=== PATIENT | female | born 1990 | race Caucasian/White ===

== ENCOUNTER 2017-07-04 21:24 | Emergency (ER) | payer OTHER ==
[2017-07-04] MEDS ORDERED: LORazepam 2 MG/ML INJ IV STA ×2 (21:44→22:41)
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
[2017-07-04] MEDS ORDERED: ALPRAZolam 0.5 MG TAB PO STA (22:17)
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
[2017-07-04] MEDS ORDERED: HALOPERIDOL LACTATE 5 MG/ML 1 ML VIAL IM ONE (22:34)
[2017-07-04] MEDS ORDERED: diphenhydrAMINE 50 MG/ML 1 ML VIAL IM STA (22:34)
[2017-07-04] MEDS ORDERED: LORazepam 2 MG/ML INJ IM STA ×2 (22:34→23:12)
[2017-07-04 22:46] LABS: Anion Gap 16 mmol/L; Blood Urea Nitrogen 8 mg/dL (7-17); Calcium 9.7 mg/dL (8.4-10.2); Carbon Dioxide 19 mmol/L (22-30); Chloride 106 mmol/L (98-107); Glucose 98 mg/dL (74-99); Non-African American GFR(MDRD) >60 (>60 ml/min/1.73 sqM); Potassium 4.1 mmol/L (3.5-5.1); Sodium 141 mmol/L (137-145)
[2017-07-04 23:04] LABS: Alcohol 321 mg/dL
[2017-07-05 01:01] LABS: Anisocytosis Slight; Basophils # (A) 0.1 k/uL (0-0.2); Basophils % (A) 1 %; CH 22.3; CHCM 29.9; Eosinophils # (A) 0.1 k/uL (0-0.7); Eosinophils % (A) 1 %; HCT 37.7 % (34.0-46.0); HGB 11.4 gm/dL (11.4-16.0); Hypochromasia Marked; Luc # (Auto) 0.12; Luc % (Auto) 1; Lymphocytes # (A) 2.7 k/uL (1.0-4.8); Lymphocytes % (A) 21 %; MCH 22.6 pg (25.0-35.0); MCHC 30.2 g/dL (31.0-37.0); MCV 74.9 fL (80.0-100.0); Mean Platelet Volume 7.1; Microcytosis Moderate; Monocytes # (A) 0.5 k/uL (0-1.0); Monocytes % (A) 4 %; Neutrophils # (A) 9.3 k/uL (1.3-7.7); Neutrophils % (A) 72 %; RBC 5.03 m/uL (3.80-5.40); RDW 18.4 % (11.5-15.5); WBC 12.9 k/uL (3.8-10.6); WBC (Perox) 13.88
[2017-07-05 13:00] VITALS: BP 125/87; PULSE 78; RESP 18; TEMP 98.4
== END 2017-07-05 13:00 | disposition home or self-care (01) ==
LOC: EC 21:24
DX: F10.120 Alcohol abuse with intoxication, uncomplicated (principal); F43.20 Adjustment disorder, unspecified; S01.01XA Laceration without foreign body of scalp, initial encounter; F41.9 Anxiety disorder, unspecified; F32.9 Major depressive disorder, single episode, unspecified; F17.200 Nicotine dependence, unspecified, uncomplicated; Z78.1 Physical restraint status; Z79.899 Other long term (current) drug therapy; Y04.2XXA Assault by strike against or bumped into by another person, initial encounter
CPT/HCPCS: 99285; 12001; 96372 ×3; 36415; 80048; 80320; 72125; 70450; L0120; J2060; J1200; J1630; 85025

== ENCOUNTER 2017-09-19 02:09 | Emergency (ER) | payer OTHER ==
[2017-09-19 03:05] VITALS: RESP 16
[2017-09-19] MEDS ORDERED: LORazepam 2 MG/ML INJ IV STA (03:07)
[2017-09-19] MEDS ORDERED: SODIUM CHLORIDE 0.9% 1,000 ML IV STA (03:07)
--- NOTE | 2017-09-19 03:07 | ED ---
Alcohol HPI - General Stated Complaint: Chest Pain, Anxiety Time Seen by Provider: 09/19/17 02:24 Source: patient Limitations: no limitations - History of Present Illness Initial Comments: This patient is a 26-year-old woman who states that she is feeling extremely anxious tonight trying to stop drinking. She reports that she previously has had alcohol withdrawal. She states that she went back to drinking probably 3-4 days ago. She has been drinking one-to-two fifths. She also reports feeling nauseated. MD Complaint: alcohol intoxication -: hour(s) Recent Trauma: No Associated Symptoms: nausea, vomiting Treatments Prior to Arrival: none - Related Data Home Medications Medication Instructions Recorded Confirmed Escitalopram [Lexapro] 10 mg PO DAILY 07/05/17 07/05/17 Levothyroxine Sodium [Synthroid] 50 mcg PO DAILY 07/05/17 07/05/17 Previous Rx's Medication Instructions Recorded Omeprazole [PriLOSEC] 40 mg PO DAILY #7 capsule. 04/14/16 chlordiazePOXIDE HCl [Librium] 25 mg PO QID #20 capsule 09/19/17 Allergies Allergy/AdvReac Type Severity Reaction Status Date / Time No Known Allergies Allergy Verified 04/23/16 04:06 Review of Systems ROS Statement: Those systems with pertinent positive or pertinent negative responses have been documented in the HPI. ROS Other: All systems not noted in ROS Statement are negative. Constitutional: Denies: fever, chills Respiratory: Denies: cough, dyspnea Cardiovascular: Reports: palpitations. Denies: chest pain, syncope Gastrointestinal: Reports: nausea. Denies: abdominal pain, vomiting, diarrhea Genitourinary: Denies: dysuria Musculoskeletal: Denies: back pain Neurological: Denies: headache, weakness, numbness Psychiatric: Reports: anxiety. Denies: homicidal thoughts, suicidal thoughts Past Medical History Past Medical History: GERD/Reflux Additional Past Medical History / Comment(s): depression History of Any Multi-Drug Resistant Organisms: None Reported Past Surgical History: No Surgical Hx Reported Past Psychological History: Anxiety, Depression, Panic Disorder Smoking Status: Current every day smoker Past Alcohol Use History: Occasional Past Drug Use History: None Reported General Exam General appearance: alert, appears intoxicated Head exam: Present: atraumatic, normocephalic Eye exam: Present: normal appearance, nystagmus. Absent: scleral icterus, conjunctival injection ENT exam: Present: mucous membranes dry Neck exam: Present: normal inspection Respiratory exam: Present: normal lung sounds bilaterally. Absent: respiratory distress, wheezes, rales, rhonchi, stridor Cardiovascular Exam: Present: normal rhythm, tachycardia, normal heart sounds. Absent: systolic murmur, diastolic murmur, rubs, gallop GI/Abdominal exam: Present: soft. Absent: distended, tenderness, guarding, rebound, mass Extremities exam: Present: normal inspection, normal capillary refill. Absent: pedal edema, calf tenderness Back exam: Absent: CVA tenderness (R), CVA tenderness (L) Neurological exam: Present: alert Skin exam: Present: warm, dry, intact, normal color. Absent: rash Course Vital Signs 09/19/17 09/19/17 02:09 04:06 Temperature 97.8 F Pulse Rate 125 H 95 Respiratory 16 16 Rate Blood Pressure 159/89 144/83 O2 Sat by Pulse 96 95 Oximetry Medical Decision Making - Lab Data Result diagrams: 09/19/17 03:21 09/19/17 03:21 Lab Results 09/19/17 09/19/17 Range/Units 03:21 03:21 WBC 8.4 (3.8-10.6) k/uL RBC 5.06 (3.80-5.40) m/uL Hgb 11.6 (11.4-16.0) gm/dL Hct 38.8 (34.0-46.0) % MCV 76.7 L (80.0-100.0) fL MCH 23.0 L (25.0-35.0) pg MCHC 30.0 L (31.0-37.0) g/dL RDW 16.7 H (11.5-15.5) % Plt Count 279 (150-450) k/uL Neutrophils % 69 % Lymphocytes % 25 % Monocytes % 4 % Eosinophils % 0 % Basophils % 1 % Neutrophils # 5.8 (1.3-7.7) k/uL Lymphocytes # 2.1 (1.0-4.8) k/uL Monocytes # 0.3 (0-1.0) k/uL Eosinophils # 0.0 (0-0.7) k/uL Basophils # 0.1 (0-0.2) k/uL Hypochromasia Moderate Anisocytosis Slight Microcytosis Slight Sodium 140 (137-145) mmol/L Potassium 4.5 (3.5-5.1) mmol/L Chloride 103 (98-107) mmol/L Carbon Dioxide 22 (22-30) mmol/L Anion Gap 15 mmol/L BUN 7 (7-17) mg/dL Creatinine 0.63 (0.52-1.04) mg/dL Est GFR (MDRD) Af Amer >60 (>60 ml/min/1.73 sqM) Est GFR (MDRD) Non-Af >60 (>60 ml/min/1.73 sqM) Glucose 161 H (74-99) mg/dL Calcium 8.6 (8.4-10.2) mg/dL Total Bilirubin 0.5 (0.2-1.3) mg/dL AST 124 H (14-36) U/L ALT 82 H (9-52) U/L Alkaline Phosphatase 122 (38-126) U/L Total Protein 7.4 (6.3-8.2) g/dL Albumin 4.0 (3.5-5.0) g/dL - EKG Data -: EKG Interpreted by [facility] EKG shows normal: sinus rhythm, axis (Normal), intervals (Normal), QRS complexes (Normal), ST-T waves (Normal) Rate: tachycardia (Rate approximately 116 bpm) Disposition Clinical Impression: Alcohol intoxication, Alcohol withdrawal Disposition: HOME SELF-CARE Condition: Fair Instructions: Alcohol Intoxication (ED) Prescriptions: chlordiazePOXIDE HCl [Librium] 25 mg PO QID #20 capsule Referrals: Hafsa Nevarez MD [Primary Care Provider] - 1-2 days
[2017-09-19 03:32] LABS: Anisocytosis Slight; Basophils # (A) 0.1 k/uL (0-0.2); Basophils % (A) 1 %; Eosinophils % (A) 0 %; HCT 38.8 % (34.0-46.0); HGB 11.6 gm/dL (11.4-16.0); Hypochromasia Moderate; Lymphocytes # (A) 2.1 k/uL (1.0-4.8); Lymphocytes % (A) 25 %; MCV 76.7 fL (80.0-100.0); Mean Platelet Volume 7.4; Microcytosis Slight; Monocytes # (A) 0.3 k/uL (0-1.0); Monocytes % (A) 4 %; Neutrophils # (A) 5.8 k/uL (1.3-7.7); Neutrophils % (A) 69 %; Platelet Count 279 k/uL (150-450); RBC 5.06 m/uL (3.80-5.40); RDW 16.7 % (11.5-15.5); WBC 8.4 k/uL (3.8-10.6)
[2017-09-19 03:43] LABS: ALT 82 U/L (9-52); AST 124 U/L (14-36); Alkaline Phosphatase 122 U/L (38-126); Anion Gap 15 mmol/L; Blood Urea Nitrogen 7 mg/dL (7-17); Calcium 8.6 mg/dL (8.4-10.2); Carbon Dioxide 22 mmol/L (22-30); Chloride 103 mmol/L (98-107); Glucose 161 mg/dL (74-99); Potassium 4.5 mmol/L (3.5-5.1); Sodium 140 mmol/L (137-145); Total Bilirubin 0.5 mg/dL (0.2-1.3); Total Protein 7.4 g/dL (6.3-8.2)
[2017-09-19 04:07] VITALS: BP 144/83
[2017-09-19 04:54] VITALS: PULSE 120; TEMP 98.7
== END 2017-09-19 04:54 | disposition home or self-care (01) ==
LOC: EC 02:09
DX: F10.239 Alcohol dependence with withdrawal, unspecified (principal); F10.229 Alcohol dependence with intoxication, unspecified; F32.9 Major depressive disorder, single episode, unspecified; F41.9 Anxiety disorder, unspecified; F17.200 Nicotine dependence, unspecified, uncomplicated; Z79.899 Other long term (current) drug therapy
CPT/HCPCS: 99285; 96374; 96361; 36415; 80053; 85025; J2060; 93005

== ENCOUNTER 2020-05-03 09:15 | Emergency (ER) | payer OTHER ==
[2020-05-03 09:23] VITALS: RESP 18
[2020-05-03] MEDS ORDERED: PANTOPRAZOLE 40 MG/10 ML VIAL IVP STA (09:41)
[2020-05-03] MEDS ORDERED: SODIUM CHLORIDE 0.9% 1,000 ML IV STA ×2 (09:41)
--- NOTE | 2020-05-03 09:55 | ED ---
Abdominal Pain HPI - General Chief Complaint: Abdominal Pain Stated Complaint: abd pain Time Seen by Provider: 05/03/20 09:28 Source: patient, RN notes reviewed, old records reviewed Mode of arrival: ambulatory Limitations: no limitations - History of Present Illness Initial Comments: Patient is a 29-year-old female presents the ER today for upper abdominal pain. She reports it seems to be across both sides of her ribs underneath. Does complain of nausea. She states that she has no fevers or chills. She states she believes is related to previous H. pylori infection and gastric ulcers. Ports that intermittent pain for the past few days. She does take Prilosec daily. - Related Data Home Medications Medication Instructions Recorded Confirmed Escitalopram [Lexapro] 10 mg PO DAILY 07/05/17 07/05/17 Levothyroxine Sodium [Synthroid] 50 mcg PO DAILY 07/05/17 07/05/17 Previous Rx's Medication Instructions Recorded Omeprazole [PriLOSEC] 40 mg PO DAILY #7 capsule. 04/14/16 chlordiazePOXIDE HCl [Librium] 25 mg PO QID #20 capsule 09/19/17 Allergies Allergy/AdvReac Type Severity Reaction Status Date / Time No Known Allergies Allergy Verified 05/03/20 09:23 Review of Systems ROS Statement: Those systems with pertinent positive or pertinent negative responses have been documented in the HPI. ROS Other: All systems not noted in ROS Statement are negative. Past Medical History Past Medical History: GERD/Reflux Additional Past Medical History / Comment(s): depression History of Any Multi-Drug Resistant Organisms: None Reported Past Surgical History: No Surgical Hx Reported Additional Past Surgical History / Comment(s): oral surgery Past Psychological History: Anxiety, Depression, Panic Disorder Smoking Status: Current every day smoker Past Alcohol Use History: None Reported Past Drug Use History: None Reported General Exam - General Exam Comments Initial Comments: Alert and oriented 29-year-old female. No distress. Limitations: no limitations General appearance: alert, in no apparent distress Head exam: Present: atraumatic, normocephalic, normal inspection Eye exam: Present: normal appearance, PERRL, EOMI. Absent: scleral icterus, conjunctival injection, periorbital swelling ENT exam: Present: normal exam, mucous membranes moist Neck exam: Present: normal inspection. Absent: tenderness, meningismus, lymphadenopathy Respiratory exam: Absent: normal lung sounds bilaterally (Right upper quadrant tenderness), respiratory distress, wheezes, rales, rhonchi, stridor Cardiovascular Exam: Present: regular rate, normal rhythm, normal heart sounds. Absent: systolic murmur, diastolic murmur, rubs, gallop, clicks GI/Abdominal exam: Present: soft, normal bowel sounds. Absent: distended, tenderness, guarding, rebound, rigid Extremities exam: Present: normal inspection, full ROM, normal capillary refill. Absent: tenderness, pedal edema, joint swelling, calf tenderness Back exam: Present: normal inspection Neurological exam: Present: alert, oriented X3, CN II-XII intact Psychiatric exam: Present: normal affect, normal mood Skin exam: Present: warm, dry, intact, normal color. Absent: rash Course Vital Signs 05/03/20 09:18 Temperature 98.7 F Pulse Rate 103 H Respiratory 18 Rate Blood Pressure 143/90 O2 Sat by Pulse 100 Oximetry Medical Decision Making - Medical Decision Making 29-year-old female with history of prior alcoholism under control shots presents today for upper abdominal pain. Past few days. Patient initially was concerning for gastritis or ulcers. Patient was given IV fluids labwork obtained. Patient does have elevated lipase. She does have better after receiving Toradol and Protonix. Patient's case is discussed Dr. Sarah who did evaluate the Patient emergency department. She had ultrasound finding which suggest a clinical no cholelithiasis. Patient is clinically well and was evaluated by Dr. Hong can be discharged home with outpatient follow-up. - Lab Data Result diagrams: 05/03/20 09:47 05/03/20 09:47 Lab Results 05/03/20 05/03/20 05/03/20 Range/Units 09:47 09:47 09:47 WBC 9.9 (3.8-10.6) k/uL RBC 4.98 (3.80-5.40) m/uL Hgb 13.4 (11.4-16.0) gm/dL Hct 41.7 (34.0-46.0) % MCV 83.6 (80.0-100.0) fL MCH 26.9 (25.0-35.0) pg MCHC 32.2 (31.0-37.0) g/dL RDW 13.4 (11.5-15.5) % Plt Count 359 (150-450) k/uL Neutrophils % 64 % Lymphocytes % 28 % Monocytes % 5 % Eosinophils % 2 % Basophils % 1 % Neutrophils # 6.3 (1.3-7.7) k/uL Lymphocytes # 2.8 (1.0-4.8) k/uL Monocytes # 0.4 (0-1.0) k/uL Eosinophils # 0.2 (0-0.7) k/uL Basophils # 0.1 (0-0.2) k/uL Sodium 139 (137-145) mmol/L Potassium 4.5 (3.5-5.1) mmol/L Chloride 108 H (98-107) mmol/L Carbon Dioxide 23 (22-30) mmol/L Anion Gap 8 mmol/L BUN 10 (7-17) mg/dL Creatinine 0.77 (0.52-1.04) mg/dL Est GFR (CKD-EPI)AfAm >90 (>60 ml/min/1.73 sqM) Est GFR (CKD-EPI)NonAf >90 (>60 ml/min/1.73 sqM) Glucose 126 H (74-99) mg/dL Calcium 10.0 (8.4-10.2) mg/dL Total Bilirubin 0.3 (0.2-1.3) mg/dL AST 21 (14-36) U/L ALT 18 (4-34) U/L Alkaline Phosphatase 77 (38-126) U/L Total Protein 7.1 (6.3-8.2) g/dL Albumin 4.4 (3.5-5.0) g/dL Amylase 78 (30-110) U/L Lipase 444 H (23-300) U/L Urine Color Yellow Urine Appearance Clear (Clear) Urine pH 6.5 (5.0-8.0) Ur Specific [place] 1.020 (1.001-1.035) Urine Protein Negative (Negative) Urine Glucose (UA) Negative (Negative) Urine Ketones Negative (Negative) Urine Blood Trace H (Negative) Urine Nitrite Negative (Negative) Urine Bilirubin Negative (Negative) Urine Urobilinogen <2.0 (<2.0) mg/dL Ur Leukocyte Esterase Negative (Negative) Urine RBC 1 (0-5) /hpf Urine WBC <1 (0-5) /hpf Ur Squamous Epith Cells 3 (0-4) /hpf Urine Mucus Rare H (None) /hpf - Radiology Data Radiology results: report reviewed Findings just pericellular disease. Atrophic pancreas. Possible dilated pancreatic that may be related to chronic pancreatitis. Patient dilated common bile ducts and findings just choledocholithiasis. Consider gastric neurology consult. Disposition Clinical Impression: Chronic pancreatitis, Upper abdominal pain, Biliary colic Disposition: HOME SELF-CARE Condition: Good Instructions (If sedation given, give patient instructions): Abdominal Pain (ED), Low Fat Diet (ED) Additional Instructions: Patient advised to follow-up with primary care physician and surgeon. Return to the ED if any alarming signs or symptoms occur. Is patient prescribed a controlled substance at d/c from ED?: No Referrals: [facility] [Primary Care Provider] - 1-2 days Sabra Draper MD [STAFF PHYSICIAN] - 1-2 days Time of Disposition: 12:12
[2020-05-03 10:14] LABS: Basophils # (A) 0.1 k/uL (0-0.2); Basophils % (A) 1 %; Eosinophils # (A) 0.2 k/uL (0-0.7); Eosinophils % (A) 2 %; HCT 41.7 % (34.0-46.0); HGB 13.4 gm/dL (11.4-16.0); Lymphocytes # (A) 2.8 k/uL (1.0-4.8); Lymphocytes % (A) 28 %; MCH 26.9 pg (25.0-35.0); MCHC 32.2 g/dL (31.0-37.0); MCV 83.6 fL (80.0-100.0); Mean Platelet Volume 7.5; Monocytes # (A) 0.4 k/uL (0-1.0); Monocytes % (A) 5 %; Neutrophils # (A) 6.3 k/uL (1.3-7.7); Neutrophils % (A) 64 %; Platelet Count 359 k/uL (150-450); RBC 4.98 m/uL (3.80-5.40); RDW 13.4 % (11.5-15.5); WBC 9.9 k/uL (3.8-10.6)
[2020-05-03 10:21] LABS: ALT 18 U/L (4-34); AST 21 U/L (14-36); African American GFR (CKD) >90 (>60 ml/min/1.73 sqM); Albumin 4.4 g/dL (3.5-5.0); Alkaline Phosphatase 77 U/L (38-126); Amylase 78 U/L (30-110); Anion Gap 8 mmol/L; Blood Urea Nitrogen 10 mg/dL (7-17); Carbon Dioxide 23 mmol/L (22-30); Chloride 108 mmol/L (98-107); Glucose 126 mg/dL (74-99); Non-African American GFR(CKD) >90 (>60 ml/min/1.73 sqM); Potassium 4.5 mmol/L (3.5-5.1); Sodium 139 mmol/L (137-145); Total Bilirubin 0.3 mg/dL (0.2-1.3); Total Protein 7.1 g/dL (6.3-8.2)
[2020-05-03] MEDS ORDERED: KETOROLAC 15 MG/ML 1 ML VIAL IVP STA (10:30)
[2020-05-03 10:36] LABS: Appearance,Urine Clear (Clear); Bilirubin,Urine Negative (Negative); Blood,Urine Trace (Negative); Color,Urine Yellow; Glucose,Urine (UA) Negative (Negative); Ketones,Urine Negative (Negative); Leukocyte Esterase,Urine Negative (Negative); Mucus,Urine Rare /hpf; Nitrite,Urine Negative (Negative); PH, Urine 6.5 (5.0-8.0); Protein,Urine Negative (Negative); RBC,Urine 1 /hpf (0-5); Squamous Epithelial Cell,Urine 3 /hpf (0-4); Urobilinogen,Urine <2.0 mg/dL (<2.0); WBC,Urine <1 /hpf (0-5)
--- NOTE | 2020-05-03 11:35 | US ---
EXAMINATION TYPE: US gallbladder DATE OF EXAM: 05/03/2020 COMPARISON: NONE CLINICAL HISTORY: elevated lipase, pain. abnormal labs. Pain. EXAM MEASUREMENTS: Liver Length: 16.2 cm Gallbladder Wall: 0.2 cm CBD: 0.9 cm Right Kidney: 11.2 x 4.4 x 4.2 cm Pancreas: Head and tail not well visualized. Body appears heterogenous and small, possible dilated pancreatic duct. Liver: Appears coarse and slightly heterogenous Gallbladder: wnl Evidence for sonographic Calles's sign: neg CBD: Possible nonvascular nonshadowing circular lesion visualized in CBD = 1.1 x 0.8 x 0.8 cm Right Kidney: No hydronephrosis or masses seen IMPRESSION: Findings suggest hepatocellular disease. Atrophic pancreas, possible dilated pancreatic d uct may be related to chronic pancreatitis. There is dilated common bile duct, findings suggest danielle docholithiasis, consider gastroenterology consult.
--- NOTE | 2020-05-03 12:18 | P.GSCN ---
History of Present Illness Consult date: 05/03/20 History of present illness: Patient presented to the ER after having recurrent episodes of progressive abdominal pain. She reports at presentation to the ER, her pain was severe including at the right upper quadrant. She presently is comfortable. Her initial abdominal pain has subsided. Her last meal was homemade bulgarian toast with butter, eggs, cinnamon and bread. "I usually eat fatty foods." Labs demonstrated no elevated of her liver enzymes, but with mildy elevated lipase. She has history of drinking. Additionally, her ultrasound was personally reviewed without thickened gallbladder wall. Radiology report had questionable choledocholithiasis, however clinically total bilirubin and liver enzymes are normal and she no longer has any significant abdominal pain. ABDOMEN: No peritonitis. Non-tender. Non-distended. LABS: Reviewed STUDIES: US reviewed. PLAN: 1. Clinically, he acute abdominal pain has resolved. Clinical history is consistent with symptomatic gallstones. 2. Low fat diet and education reinforced to avoid fatty foods. 3. Since abdominal pain is better with dietary education performed, patient may be discharged from a surgical standpoint with follow-up in the office. 4. All questions were addressed. Patient was happy with care plan. Past Medical History Past Medical History: GERD/Reflux Additional Past Medical History / Comment(s): depression History of Any Multi-Drug Resistant Organisms: None Reported Past Surgical History: No Surgical Hx Reported Additional Past Surgical History / Comment(s): oral surgery Past Psychological History: Anxiety, Depression, Panic Disorder Smoking Status: Current every day smoker Past Alcohol Use History: None Reported Past Drug Use History: None Reported Medications and Allergies Home Medications Medication Instructions Recorded Confirmed Type Omeprazole [PriLOSEC] 40 mg PO DAILY #7 capsule. 04/14/16 07/05/17 Rx Escitalopram [Lexapro] 10 mg PO DAILY 07/05/17 07/05/17 History Levothyroxine Sodium [Synthroid] 50 mcg PO DAILY 07/05/17 07/05/17 History chlordiazePOXIDE HCl [Librium] 25 mg PO QID #20 capsule 09/19/17 Rx Allergies Allergy/AdvReac Type Severity Reaction Status Date / Time No Known Allergies Allergy Verified 05/03/20 09:23 Surgical - Exam Vital Signs Temp Pulse Resp BP Pulse Ox 98.7 F 103 H 18 143/90 100 05/03/20 09:18 05/03/20 09:18 05/03/20 09:18 05/03/20 09:18 05/03/20 09:18 Results - Labs 05/03/20 09:47 05/03/20 09:47 Abnormal Lab Results - Last 24 Hours (Table) 05/03/20 05/03/20 Range/Units 09:47 09:47 Chloride 108 H (98-107) mmol/L Glucose 126 H (74-99) mg/dL Lipase 444 H (23-300) U/L Urine Blood Trace H (Negative) Urine Mucus Rare H (None) /hpf Diabetes panel 05/03/20 Range/Units 09:47 Sodium 139 (137-145) mmol/L Potassium 4.5 (3.5-5.1) mmol/L Chloride 108 H (98-107) mmol/L Carbon Dioxide 23 (22-30) mmol/L BUN 10 (7-17) mg/dL Creatinine 0.77 (0.52-1.04) mg/dL Glucose 126 H (74-99) mg/dL Calcium 10.0 (8.4-10.2) mg/dL AST 21 (14-36) U/L ALT 18 (4-34) U/L Alkaline Phosphatase 77 (38-126) U/L Total Protein 7.1 (6.3-8.2) g/dL Albumin 4.4 (3.5-5.0) g/dL Calcium panel 05/03/20 Range/Units 09:47 Calcium 10.0 (8.4-10.2) mg/dL Albumin 4.4 (3.5-5.0) g/dL Pituitary panel 05/03/20 Range/Units 09:47 Sodium 139 (137-145) mmol/L Potassium 4.5 (3.5-5.1) mmol/L Chloride 108 H (98-107) mmol/L Carbon Dioxide 23 (22-30) mmol/L BUN 10 (7-17) mg/dL Creatinine 0.77 (0.52-1.04) mg/dL Glucose 126 H (74-99) mg/dL Calcium 10.0 (8.4-10.2) mg/dL Adrenal panel 05/03/20 Range/Units 09:47 Sodium 139 (137-145) mmol/L Potassium 4.5 (3.5-5.1) mmol/L Chloride 108 H (98-107) mmol/L Carbon Dioxide 23 (22-30) mmol/L BUN 10 (7-17) mg/dL Creatinine 0.77 (0.52-1.04) mg/dL Glucose 126 H (74-99) mg/dL Calcium 10.0 (8.4-10.2) mg/dL Total Bilirubin 0.3 (0.2-1.3) mg/dL AST 21 (14-36) U/L ALT 18 (4-34) U/L Alkaline Phosphatase 77 (38-126) U/L Total Protein 7.1 (6.3-8.2) g/dL Albumin 4.4 (3.5-5.0) g/dL
[2020-05-03 12:24] VITALS: BP 140/83; PULSE 97; TEMP 98.3
== END 2020-05-03 12:24 | disposition home or self-care (01) ==
LOC: EC 09:15
DX: K80.50 Calculus of bile duct without cholangitis or cholecystitis without obstruction (principal); K86.1 Other chronic pancreatitis; F41.9 Anxiety disorder, unspecified; F32.9 Major depressive disorder, single episode, unspecified; F17.200 Nicotine dependence, unspecified, uncomplicated; Z79.899 Other long term (current) drug therapy
CPT/HCPCS: 36415; 80053; 82150; 83690; 85025; 81001; 76705; 99284; 96374; 96375; 96361 ×2; J1885; C9113

== ENCOUNTER → 2020-08-24 | Outpatient (CLI) | payer OTHER ==
--- NOTE | 2020-08-25 03:58 | MR ---
EXAMINATION TYPE: MR MRCP DATE OF EXAM: 08/24/2020 COMPARISON: HISTORY: Chronic pancreatitis Multiplanar multiecho imaging of the abdomen was performed without contrast. There are MRCP images. Liver and spleen have normal size and contour. The bile ducts are not dilated. Gallbladder appears no rmal. There is mild hiatal hernia. Pancreas has normal size. There is no evidence of pancreatic mass. There is a wavy appearance of the pancreatic duct. No pancreatic mass seen. Pancreatic duct is not o bviously dilated. Pancreatic duct measures up to 4 mm. There is no adrenal mass. The kidneys have normal size. There is no hydronephrosis. There is no evide nce of a renal mass. There is no evidence of retroperitoneal adenopathy. There is no ascites. IMPRESSION: There is slight wavy appearance of the pancreatic duct that could relate to some chronic pancreatitis . There is no evidence of acute pancreatitis. No dilated ducts. Biliary tree and gallbladder appear n ormal.
== END | disposition home or self-care (01) ==
LOC: RADMRIMAIN 21:01
PROVIDERS: ATTEND Physician Assistant
DX: R93.5 Abnormal findings on diagnostic imaging of other abdominal regions, including retroperitoneum (principal)
CPT/HCPCS: 74181

== ENCOUNTER → 2021-02-12 | Outpatient (CLI) | payer OTHER ==
--- NOTE | 2021-02-12 08:48 | US ---
EXAMINATION TYPE: US abdomen complete DATE OF EXAM: 02/12/2021 COMPARISON: NONE CLINICAL HISTORY: R10.13 epigastric pain. Epigastric pain EXAM MEASUREMENTS: Liver Length: 16.9 cm Gallbladder Wall: 0.2 cm CBD: 0.9 cm Spleen: 9.5 cm Right Kidney: 12.5 x 3.9 x 4.3 cm Left Kidney: 11.4 x 5.6 x 4.6 cm Pancreas: Poorly visualized. Heterogeneous pancreatic parenchyma. Dilated duct = 0.5cm Liver: Mild diffuse fatty infiltration of the liver. Gallbladder: no evidence of stones Evidence for sonographic Calles's sign: no CBD: dilated Spleen: wnl Right Kidney: no evidence of hydronephrosis Left Kidney: no evidence of hydronephrosis Upper IVC: wnl Abd Aorta: wnl The right lobe of the liver measures 16.9 cm. Mild diffuse fatty infiltration of the liver. No discre te hepatic mass or intrahepatic biliary dilatation. No gallstones, sludge, pericholecystic fluid. Gal lbladder wall is within normal limits. Common duct is dilated measuring up to 1 cm. The pancreatic du ct is also dilated measuring up to 5 mm. An obstructing calculus or lesion is not excluded. MRCP or E STEAM TABLE ASSOCIATE is recommended for further evaluation. No renal calculi or hydronephrosis. The spleen is normal i n length. IMPRESSION: 1. Mild diffuse fatty infiltration of liver. 2. No gallstones, sludge, or pericholecystic fluid. Gallbladder wall thickness is within normal limit s. 3. The common duct and pancreatic duct are dilated. Further evaluation with MRCP or ERCP is recommend ed. An obstructing calculus or underlying lesion/ mass is not excluded.
== END | disposition home or self-care (01) ==
LOC: RADUSWWP 06:55
PROVIDERS: ATTEND Internal Medicine Gastroenterology
DX: K76.0 Fatty (change of) liver, not elsewhere classified (principal); K83.8 Other specified diseases of biliary tract
CPT/HCPCS: 76700

== ENCOUNTER 2021-02-20 09:37 | Inpatient (IN) | payer OTHER ==
[2021-02-20] MEDS ORDERED: SODIUM CHLORIDE 0.9% 1,000 ML IV STA (09:48)
[2021-02-20] MEDS ORDERED: SODIUM CHLORIDE 0.9% 500 ML 500 ML IV STA (09:48)
--- NOTE | 2021-02-20 10:02 | ED ---
General Adult HPI - General Chief complaint: Abdominal Pain Stated complaint: abd pain Time Seen by Provider: 02/20/21 09:40 Source: patient, RN notes reviewed, old records reviewed Mode of arrival: EMS Limitations: no limitations - History of Present Illness Initial comments: This is a 30-year-old female who presents to the emergency department via EMS and she states she's had abdominal pain for last 2 days she has a history of pancreatitis and drinking but she hasn't drank in a few years. Patient states the pain feels exactly like her pancreatitis pain in the past. Patient states the pain started 2 days ago and got progressively worse and she continues to vomit starting yesterday to today. Patient denies any diarrhea per patient denies any dysuria hematuria urinary frequency. Patient denies any chest pain difficulty breathing first breath per patient denies any fever chills or cough per patient denies headache patient denies numbness weakness per patient denies any lightheadedness or dizziness. - Related Data Home Medications Medication Instructions Recorded Confirmed Escitalopram [Lexapro] 10 mg PO DAILY 07/05/17 07/05/17 Levothyroxine Sodium [Synthroid] 50 mcg PO DAILY 07/05/17 07/05/17 Previous Rx's Medication Instructions Recorded Omeprazole [PriLOSEC] 40 mg PO DAILY #7 capsule. 04/14/16 chlordiazePOXIDE HCl [Librium] 25 mg PO QID #20 capsule 09/19/17 Allergies Allergy/AdvReac Type Severity Reaction Status Date / Time No Known Allergies Allergy Verified 02/20/21 09:45 Review of Systems ROS Statement: Those systems with pertinent positive or pertinent negative responses have been documented in the HPI. ROS Other: All systems not noted in ROS Statement are negative. Past Medical History Past Medical History: GERD/Reflux Additional Past Medical History / Comment(s): depression, pancreatitis History of Any Multi-Drug Resistant Organisms: None Reported Past Surgical History: No Surgical Hx Reported Additional Past Surgical History / Comment(s): oral surgery Past Psychological History: Anxiety, Depression, Panic Disorder Smoking Status: Current every day smoker Past Alcohol Use History: Abuse Past Drug Use History: None Reported General Exam - General Exam Comments Initial Comments: GENERAL: Patient is well-developed and well-nourished. Patient is nontoxic and well- hydrated and is in mild distress. ENT: Neck is soft and supple. No significant lymphadenopathy is noted. Oropharynx is clear. Moist mucous membranes. Neck has full range of motion without eliciting any pain. EYES: The sclera were anicteric and conjunctiva were pink and moist. Extraocular movements were intact and pupils were equal round and reactive to light. Eyelids were unremarkable. PULMONARY: Unlabored respirations. Good breath sounds bilaterally. No audible rales rhonchi or wheezing was noted. CARDIOVASCULAR: There is a regular rate and rhythm without any murmurs gallops or rubs. ABDOMEN: Epigastric abdominal pain SKIN: Skin is clear with no lesions or rashes and otherwise unremarkable. NEUROLOGIC: Patient is alert and oriented x3. Cranial nerves II through XII are grossly intact. Motor and sensory are also intact. Normal speech, volume and content. Symmetrical smile. MUSCULOSKELETAL: Normal extremities with adequate strength and full range of motion. LYMPHATICS: No significant lymphadenopathy is noted PSYCHIATRIC: Normal psychiatric evaluation. Limitations: no limitations Course Vital Signs 02/20/21 02/20/21 09:42 11:51 Temperature 98.2 F 98.1 F Pulse Rate 76 53 L Respiratory 16 16 Rate Blood Pressure 145/88 125/70 O2 Sat by Pulse 97 97 Oximetry Medical Decision Making - Medical Decision Making EKG shows normal sinus rhythm at 60 bpm HI interval is on a 44 QRS is 82 QT interval 434 QTC is 434 per patient's EKG shows no ST segment elevation or d epression. Patient's ultrasound showed dilated intrahepatic ducts as well as, bile duct as well as the pancreatic duct. No signs of cholecystitis were noted. Patient continued to have epigastric abdominal pain. Patient's amylase was elevated. - Lab Data Result diagrams: 02/20/21 09:52 02/20/21 09:52 Lab Results 02/20/21 02/20/21 02/20/21 Range/Units 09:52 09:52 09:52 WBC 17.0 H (3.8-10.6) k/uL RBC 4.75 (3.80-5.40) m/uL Hgb 14.1 (11.4-16.0) gm/dL Hct 40.4 (34.0-46.0) % MCV 85.1 (80.0-100.0) fL MCH 29.7 (25.0-35.0) pg MCHC 34.9 (31.0-37.0) g/dL RDW 13.2 (11.5-15.5) % Plt Count 402 (150-450) k/uL MPV 7.8 Neutrophils % 87 % Lymphocytes % 9 % Monocytes % 3 % Eosinophils % 1 % Basophils % 0 % Neutrophils # 14.7 H (1.3-7.7) k/uL Lymphocytes # 1.6 (1.0-4.8) k/uL Monocytes # 0.4 (0-1.0) k/uL Eosinophils # 0.2 (0-0.7) k/uL Basophils # 0.0 (0-0.2) k/uL Sodium 134 L (137-145) mmol/L Potassium 4.4 (3.5-5.1) mmol/L Chloride 103 (98-107) mmol/L Carbon Dioxide 15 L (22-30) mmol/L Anion Gap 16 mmol/L BUN 18 H (7-17) mg/dL Creatinine 0.64 (0.52-1.04) mg/dL Est GFR (CKD-EPI)AfAm >90 (>60 ml/min/1.73 sqM) Est GFR (CKD-EPI)NonAf >90 (>60 ml/min/1.73 sqM) Glucose 165 H (74-99) mg/dL Plasma Lactic Acid Andrei 1.3 (0.7-2.0) mmol/L Calcium 10.9 H (8.4-10.2) mg/dL Total Bilirubin 2.5 H (0.2-1.3) mg/dL AST 123 H (14-36) U/L ALT 274 H (4-34) U/L Alkaline Phosphatase 189 H (38-126) U/L Total Protein 7.9 (6.3-8.2) g/dL Albumin 5.2 H (3.5-5.0) g/dL Amylase 177 H (30-110) U/L Lipase 750 H (23-300) U/L Disposition Clinical Impression: Biliary colic, Pancreatitis due to biliary obstruction Disposition: ADMITTED IP TO THIS [facility] Referrals: None,Stated [REFERRING] - 1-2 days Time of Disposition: 12:18
[2021-02-20 10:06] LABS: Basophils % (A) 0 %; Eosinophils # (A) 0.2 k/uL (0-0.7); Eosinophils % (A) 1 %; HCT 40.4 % (34.0-46.0); HGB 14.1 gm/dL (11.4-16.0); Lymphocytes # (A) 1.6 k/uL (1.0-4.8); Lymphocytes % (A) 9 %; MCH 29.7 pg (25.0-35.0); MCHC 34.9 g/dL (31.0-37.0); MCV 85.1 fL (80.0-100.0); Mean Platelet Volume 7.8; Monocytes # (A) 0.4 k/uL (0-1.0); Monocytes % (A) 3 %; Neutrophils # (A) 14.7 k/uL (1.3-7.7); Neutrophils % (A) 87 %; Platelet Count 402 k/uL (150-450); RBC 4.75 m/uL (3.80-5.40); RDW 13.2 % (11.5-15.5)
[2021-02-20 10:17] LABS: ALT 274 U/L (4-34); AST 123 U/L (14-36); African American GFR (CKD) >90 (>60 ml/min/1.73 sqM); Albumin 5.2 g/dL (3.5-5.0); Alkaline Phosphatase 189 U/L (38-126); Amylase 177 U/L (30-110); Anion Gap 16 mmol/L; Blood Urea Nitrogen 18 mg/dL (7-17); Calcium 10.9 mg/dL (8.4-10.2); Carbon Dioxide 15 mmol/L (22-30); Chloride 103 mmol/L (98-107); Glucose 165 mg/dL (74-99); Lipase 750 U/L (23-300); Non-African American GFR(CKD) >90 (>60 ml/min/1.73 sqM); Potassium 4.4 mmol/L (3.5-5.1); Sodium 134 mmol/L (137-145); Total Bilirubin 2.5 mg/dL (0.2-1.3); Total Protein 7.9 g/dL (6.3-8.2)
[2021-02-20] MEDS ORDERED: PIPERACILLIN-TAZOBACTAM 3.375 GM in SODIUM CHLORIDE 0.9% 100 ML IVPB STA (11:01)
--- NOTE | 2021-02-20 11:06 | US ---
EXAMINATION TYPE: US gallbladder DATE OF EXAM: 02/20/2021 COMPARISON: NONE CLINICAL HISTORY: Right upper quadrant abdominal pain elevated liver. Pain EXAM MEASUREMENTS: Liver Length: 17.2 cm Gallbladder Wall: 0.3 cm CBD: 1.2 cm Right Kidney: 12.4 x 4.3 x 3.6 cm Pancreas: Tail obscured by overlying bowel gas. Main pancreatic duct dilated up to 6 mm. Liver: No evidence of hepatic mass or dilated intrahepatic ducts. Gallbladder: No shadowing calculi seen within the gallbladder lumen. Evidence for sonographic Calles's sign: No CBD: Dilated. Internal echoes seen within the extrahepatic proximal common bile duct. Right Kidney: wnl IMPRESSION: 1. No sonographic evidence of cholelithiasis or acute cholecystitis. 2. Dilated extrahepatic common bile duct and main pancreatic duct. 3. Internal echoes seen within the extrahepatic proximal common bile duct, may be on the basis of lorenza hnique versus debris. Clinical correlation for cholangitis. RECOMMENDATION: Further evaluation with MRCP MRI of the abdomen recommended to rule out distal choledocholithiasis or pancreatic head mass. Dr. Reza called Dr. Betancur ED provider with above findings at 11:02 AM 02/20/2021. Communication ackn owledged and read back..
[2021-02-20] MEDS ORDERED: HYDROmorphone 0.5 MG/0.5 ML SYRINGE IVP STA (11:37)
--- NOTE | 2021-02-20 12:51 | P.HPIM ---
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 Patient told me that she has been having abdominal pain on and off for the last 2 years. Yesterday, she noted that her pain was very severe and this morning she was rating her pain as 10 out of 10. Pain is mostly in the epigastric and upper abdomen area. This was associated with vomiting. Patient is having normal bowel movements otherwise. She denies eating any unusual food last night. No alcohol whatsoever for the last 3 years. Patient otherwise denies any dysuria, diarrhea, or shortness of breath. Patient was evaluated in the ER and was found to have evidence of acute pancreatitis and will be admitted to the hospital for further evaluation. Review of Systems Review of system: 14 points review of systems were obtained and were negative except to what were mentioned in the HPI. Past Medical History Past Medical History: GERD/Reflux Additional Past Medical History / Comment(s): depression, pancreatitis History of Any Multi-Drug Resistant Organisms: None Reported Past Surgical History: No Surgical Hx Reported Additional Past Surgical History / Comment(s): oral surgery Past Psychological History: Anxiety, Depression, Panic Disorder Smoking Status: Current every day smoker Past Alcohol Use History: Abuse Past Drug Use History: None Reported Medications and Allergies Home Medications Medication Instructions Recorded Confirmed Type Omeprazole [PriLOSEC] 40 mg PO DAILY #7 capsule. 04/14/16 07/05/17 Rx Escitalopram [Lexapro] 10 mg PO DAILY 07/05/17 07/05/17 History Levothyroxine Sodium [Synthroid] 50 mcg PO DAILY 07/05/17 07/05/17 History chlordiazePOXIDE HCl [Librium] 25 mg PO QID #20 capsule 09/19/17 Rx Allergies Allergy/AdvReac Type Severity Reaction Status Date / Time No Known Allergies Allergy Verified 02/20/21 09:45 Physical Exam Vitals: Vital Signs Temp Pulse Resp BP Pulse Ox 02/20/21 11:51 98.1 F 53 L 16 125/70 97 02/20/21 09:42 98.2 F 76 16 145/88 97 Intake and Output 07/09/21 07/10/21 07/10/21 22:59 06:59 14:59 Other: Weight 85.729 kg General: The patient is awake and alert, in no distress Eye: there is normal conjunctiva bilaterally. Neck: The neck is supple, there is no JVD. Cardiovascular: Normal S1-S2, no S3-S4, no murmurs. Respiratory: Lungs clear to auscultation bilaterally Gastrointestinal: Abdomen is soft, there is mild tenderness to palpation in the epigastric area Musculoskeletal: There is no pedal edema. Neurological:. Speech is normal. Skin: Skin is warm and dry Results CBC & Chem 7: 02/20/21 09:52 02/20/21 09:52 Labs: Abnormal Lab Results - Last 24 Hours (Table) 02/20/21 02/20/21 Range/Units 09:52 09:52 WBC 17.0 H (3.8-10.6) k/uL Neutrophils # 14.7 H (1.3-7.7) k/uL Sodium 134 L (137-145) mmol/L Carbon Dioxide 15 L (22-30) mmol/L BUN 18 H (7-17) mg/dL Glucose 165 H (74-99) mg/dL Calcium 10.9 H (8.4-10.2) mg/dL Total Bilirubin 2.5 H (0.2-1.3) mg/dL AST 123 H (14-36) U/L ALT 274 H (4-34) U/L Alkaline Phosphatase 189 H (38-126) U/L Albumin 5.2 H (3.5-5.0) g/dL Amylase 177 H (30-110) U/L Lipase 750 H (23-300) U/L Assessment and Plan Assessment: This is a 30-year-old female with past medical history noted below who presented to the hospital with severe abdominal pain. Patient was evaluated in the ER and admitted to the hospital for further management of her medical problems noted below. 1. Acute pancreatitis, possibly gallstone pancreatitis. I would daily patient nothing by mouth and continue aggressive IV fluid hydration. Pain control and anti-emetic as needed. 2. Dilated extrahepatic common bile duct and main pancreatic duct: Noted on u ltrasound of the abdomen. Apparently patient had another ultrasound last week showing the same. I reviewed MRCP report done in August and at that time there was no dilation of the common bile duct. GI consulted for possible ERCP. 3. History of heavy alcohol abuse now in remission. Patient has been sober for 3 years 4. DVT prophylaxis with subcu Lovenox
[2021-02-20] MEDS: SODIUM CHLORIDE 0.9% 1,000 ML IV SCH (13:03)
[2021-02-20] MEDS: PANTOPRAZOLE 40 MG/10 ML VIAL IVP SCH (13:03)
[2021-02-20] MEDS: HYDROmorphone 0.5 MG/0.5 ML SYRINGE IVP PRN ×3 (13:20→20:03)
[2021-02-20] MEDS: NICOTINE 14MG/24HR PATCH TRANSDERM SCH (14:10)
[2021-02-20] MEDS: PIPERACILLIN-TAZOBACTAM 3.375 GM in SODIUM CHLORIDE 0.9% 100 ML IVPB SCH (18:07)
[2021-02-20] MEDS: MELATONIN 5 MG TABLET PO SCH (20:01)
[2021-02-21] MEDS: HYDROmorphone 0.5 MG/0.5 ML SYRINGE IVP PRN ×6 (02:15→21:14)
[2021-02-21] MEDS: SODIUM CHLORIDE 0.9% 1,000 ML IV SCH ×4 (02:15→21:14)
[2021-02-21] MEDS: PIPERACILLIN-TAZOBACTAM 3.375 GM in SODIUM CHLORIDE 0.9% 100 ML IVPB SCH (02:16)
--- NOTE | 2021-02-21 03:10 | MR ---
EXAMINATION TYPE: MR MRCP DATE OF EXAM: 02/20/2021 COMPARISON: 08/24/2020 HISTORY: Prior on synapse, pancreatitis, abnormal ultrasound Multiplanar multiecho imaging of the abdomen was performed without contrast. There are MRCP images. There is hiatal hernia. Lung bases are clear. Heart size is normal. There is no sign of pleural effus ion. There is no sign of pericardial effusion. Gallbladder is large and measures 3.8 cm in diameter. The bile ducts are somewhat dilated. The common bile duct measures 1.6 cm. I see no filling defect. There is prominent pancreatic duct that measures 4 mm in diameter. There is 9 mm cystic area in the pancreatic head. The kidneys have normal size and contour. There is no hydronephrosis. Spleen is intact. There is no s ign of retroperitoneal adenopathy. There is no ascites. There is no sign of a bowel obstruction. IMPRESSION: Compared to old exam there is development of a dilated biliary tree with enlargement of the intra and extrahepatic bile ducts. Common bile duct is 1.6 cm. There is also enlargement of the gallbladder co mpared to old exam. There is enlargement of the pancreatic duct with a cyst in the pancreatic head wh ich appears new compared to old exam. Common duct stone not identified. No definite solid pancreatic mass identified. Follow-up recommended. Small distal common bile duct stone not excluded. Small pancr eatic head tumor not excluded.
[2021-02-21] MEDS: ONDANSETRON 4 MG/2 ML VIAL IVP PRN ×3 (06:30→20:01)
[2021-02-21 06:51] LABS: Basophils % (A) 0 %; Eosinophils % (A) 0 %; HCT 38.6 % (34.0-46.0); Lymphocytes # (A) 2.4 k/uL (1.0-4.8); Lymphocytes % (A) 15 %; MCH 29.3 pg (25.0-35.0); MCHC 33.6 g/dL (31.0-37.0); MCV 87.2 fL (80.0-100.0); Mean Platelet Volume 7.9; Monocytes % (A) 7 %; Neutrophils # (A) 12.3 k/uL (1.3-7.7); Neutrophils % (A) 77 %; Platelet Count 339 k/uL (150-450); RBC 4.43 m/uL (3.80-5.40); RDW 13.4 % (11.5-15.5)
[2021-02-21 07:10] LABS: ALT 177 U/L (4-34); AST 51 U/L (14-36); African American GFR (CKD) >90 (>60 ml/min/1.73 sqM); Albumin 4.4 g/dL (3.5-5.0); Albumin/Globulin Ratio 1.8; Alkaline Phosphatase 131 U/L (38-126); Anion Gap 8 mmol/L; Blood Urea Nitrogen 9 mg/dL (7-17); Calcium 10.3 mg/dL (8.4-10.2); Carbon Dioxide 27 mmol/L (22-30); Chloride 103 mmol/L (98-107); Globulin 2.4 g/dL; Glucose 117 mg/dL (74-99); Non-African American GFR(CKD) >90 (>60 ml/min/1.73 sqM); Potassium 4.2 mmol/L (3.5-5.1); Sodium 138 mmol/L (137-145); Total Bilirubin 1.6 mg/dL (0.2-1.3); Total Protein 6.8 g/dL (6.3-8.2)
[2021-02-21] MEDS: NICOTINE 14MG/24HR PATCH TRANSDERM SCH (07:54)
[2021-02-21] MEDS: ENOXAPARIN 40 MG/0.4 ML SYRINGE SQ SCH ×2 (07:54→07:55)
[2021-02-21] MEDS: PANTOPRAZOLE 40 MG/10 ML VIAL IVP SCH (07:55)
--- NOTE | 2021-02-21 09:54 | P.PN ---
Subjective Progress Note Date: 02/21/21 Patient is still complaining of abdominal pain radiating to her back. She is not very hungry and is afraid to eat. Objective - Vital Signs Vital signs: Vital Signs Temp 98.4 F 02/21/21 08:00 Pulse 59 L 02/21/21 08:00 Resp 16 02/21/21 08:00 BP 133/80 02/21/21 08:00 Pulse Ox 99 02/21/21 08:00 Intake & Output 02/20/21 02/21/21 02/21/21 18:59 06:59 18:59 Intake Total 1660 Balance 1660 Weight 85.729 kg Intake: Intake, IV Titration 1660 Amount Piperacillin-Tazobactam 3 100 .375 gm In Sodium Chloride 0.9% 100 ml @ 25 mls/hr IVPB Q8H ROSI Rx#: [id number] Sodium Chloride 0.9% 1, 1560 000 ml @ 130 mls/hr IV . Q7H42M ROSI Rx#:[id number] Oral 0 Other: # Voids 3 - Exam General: The patient is awake and alert, in no distress Eye: there is normal conjunctiva bilaterally. Neck: The neck is supple, there is no JVD. Cardiovascular: Normal S1-S2, no S3-S4, no murmurs. Respiratory: Lungs clear to auscultation bilaterally Gastrointestinal: Abdomen is soft, nontender Musculoskeletal: There is no pedal edema. Neurological:. Speech is normal. Skin: Skin is warm and dry - Labs CBC & Chem 7: 02/21/21 06:22 02/21/21 06:22 Labs: Abnormal Lab Results - Last 24 Hours (Table) 02/20/21 02/20/21 02/20/21 Range/Units 09:52 09:52 09:52 WBC 17.0 H (3.8-10.6) k/uL Neutrophils # 14.7 H (1.3-7.7) k/uL Sodium 134 L (137-145) mmol/L Carbon Dioxide 15 L (22-30) mmol/L BUN 18 H (7-17) mg/dL Glucose 165 H (74-99) mg/dL Calcium 10.9 H (8.4-10.2) mg/dL Total Bilirubin 2.5 H (0.2-1.3) mg/dL AST 123 H (14-36) U/L ALT 274 H (4-34) U/L Alkaline Phosphatase 189 H (38-126) U/L Albumin 5.2 H (3.5-5.0) g/dL Triglycerides 158.0 H (0.0-149.0) mg/dL Amylase 177 H (30-110) U/L Lipase 750 H (23-300) U/L 02/21/21 02/21/21 Range/Units 06:22 06:22 WBC 16.0 H (3.8-10.6) k/uL Neutrophils # 12.3 H (1.3-7.7) k/uL Sodium (137-145) mmol/L Carbon Dioxide (22-30) mmol/L BUN (7-17) mg/dL Glucose 117 H (74-99) mg/dL Calcium 10.3 H (8.4-10.2) mg/dL Total Bilirubin 1.6 H (0.2-1.3) mg/dL AST 51 H (14-36) U/L ALT 177 H (4-34) U/L Alkaline Phosphatase 131 H (38-126) U/L Albumin (3.5-5.0) g/dL Triglycerides (0.0-149.0) mg/dL Amylase (30-110) U/L Lipase (23-300) U/L Assessment and Plan Assessment: This is a 30-year-old female with past medical history noted below who presented to the hospital with severe abdominal pain. Patient was evaluated in the ER and admitted to the hospital for further management of her medical problems noted below. 1. Acute pancreatitis, I would daily patient nothing by mouth and continue aggressive IV fluid hydration. Pain control and anti-emetic as needed. 2. Dilated extrahepatic common bile duct and main pancreatic duct: Noted on ultrasound of the abdomen. MRCP obtain confirming dilated biliary tree with enlargement of the intra-and extrahepatic bile duct. Awaiting GI evaluation for possible ERCP. I reviewed MRCP report done in August and at that time there was no dilation of the common bile duct. 3. History of heavy alcohol abuse now in remission. Patient has been sober for 3 years 4. DVT prophylaxis with subcu Lovenox
--- NOTE | 2021-02-21 12:37 | CONS ---
CONSULTATION DATE OF SERVICE: February 21, 2021. REASON FOR CONSULTATION: Elevated LFTs and history of pancreatitis. HISTORY OF PRESENT ILLNESS: The patient is a 30-year-old pleasant white female with history of chronic relapsing pancreatitis secondary to alcohol use which she quit drinking about 3 years ago. Multiple hospitalizations with flare-up of pancreatitis in the last 5 years, admitted to the hospital with severe abdominal pain for the last 3 or 4 days duration. In fact, she has been having this abdominal pain on and off for the last 2 years, but has gotten much worse in the last 3 or 4 days. The pain is mostly in the epigastric area associated with some nausea, vomiting. She denies any fever, chills, or night sweats. She came to the emergency room and was noted to have elevated LFTs as well as elevated lipase at 750, consistent with acute pancreatitis, admitted to the hospital for further evaluation. LABS: In the ER did show a bilirubin of 2.5, AST 123, ALT 274, alkaline phosphatase is 189. She did have ultrasound of the gallbladder done in the ER that showed evidence of biliary ductal dilation. No evidence of cholelithiasis or cholecystitis and possibility of internal echoes seen within the extrahepatic proximal common bile duct. She subsequently had an MRCP done early this morning that revealed dilated biliary tree both in the intra and extrahepatic biliary system with common bile duct measuring 1.6 cm. Also there is enlargement of the gallbladder compared to the prior MRCP done in August of 2020. There is enlargement of the pancreatic duct as well as small cyst in the head of the pancreas. No CBD stones identified. No solid pancreatic masses identified. PAST MEDICAL HISTORY: Significant for hypertension, chronic pancreatitis, gastroesophageal reflux disease, hypothyroidism, anxiety, depression, and alcohol abuse in the past, which he quit drinking 3 years ago. MEDICATIONS: Motrin, BuSpar, vitamin D3, Prinivil, iron sulfate, Wellbutrin, Norvasc, Lioresal, Prilosec, Synthroid, and Lexapro. ALLERGIES: None. SOCIAL HISTORY: Chronic smoker, heavy alcohol use in the past, quit drinking 3 years ago. FAMILY HISTORY: Unremarkable. REVIEW OF SYSTEMS: CARDIOPULMONARY: No chest pain or shortness of breath. : No dysuria or hematuria. MUSCULOSKELETAL unremarkable. SKIN unremarkable. ENDOCRINE unremarkable. PSYCHIATRIC: Anxiety, depression. ENT/vision: Unremarkable. GI as mentioned above. CONSTITUTIONAL: Weight loss about 15 pounds in the last 6 months. No fever, chills, night sweats. PHYSICAL EXAMINATION: Appears comfortable. VITAL SIGNS: Stable. Blood pressure is 132/80, pulse rate 59. Temperature 98.4. HEENT examination unremarkable. Conjunctivae pink. Sclerae slightly icteric. Oral cavity no lesions. NECK: No JVD or lymph node enlargement. CHEST was clear to auscultation. HEART: Regular rate and rhythm. ABDOMEN: Soft. Tenderness in the epigastric area. Bowel sounds are positive. No organomegaly. EXTREMITIES: No pedal edema. NEURO: She is alert and oriented x3. No focal deficits. LABORATORY DATA: WBC 17, hemoglobin 14, platelets normal. Basic metabolic panel showed a bilirubin of 2.5, AST 123, ALT 274, alkaline phosphatase is 189. Today bilirubin is down to 1.6, AST 51, ALT 177 and alkaline phosphatase 131 and WBC 16. IMPRESSION: 1. Chronic relapsing pancreatitis with multiple hospitalizations in the last 5 years. Last one was about 6 months ago. Presents with severe epigastric pain, noted to have mild elevation of lipase consistent with a flare-up of pancreatitis. 2. Elevated LFTs and mild jaundice. T-bilirubin was 2.5 yesterday, dropped to 1.6 today. Ultrasound of the abdomen as well as MRCP did show evidence of intra and extrahepatic biliary ductal dilation with CBD measuring 1.6 cm in diameter but no CBD stones identified. Also there was evidence of pancreatic ductal dilation with a small cyst in the head of the pancreas, also gallbladder was slightly dilated. No gallstones identified. The clinical and biochemical picture are more consistent with possible distal common bile duct stricture secondary to chronic pancreatitis causing intra and extrahepatic biliary ductal dilation. Doubt CBD stone. Her bilirubin has slightly improved today and serum transaminases have also improved today. 3. Heavy alcohol abuse in the past. She quit drinking 3 years ago. 4. History of hypertension. 5. History of anxiety and depression. RECOMMENDATIONS: I had a lengthy discussion with the patient regarding her elevated serum transaminases and possibility of common bile duct stricture related to chronic pancreatitis causing mild elevation of serum transaminases and bilirubin. I discussed with her the possibility of ERCP. If she continues to have worsening LFTs, but at this point since serum transaminases as well as bilirubin has increased, we can continue with conservative approach. I discussed with her about the benefits and complications of an ERCP including possibility of acute pancreatitis related to the procedure and at this time patient elects not to have any endoscopic intervention which I totally agree with it. For now, we will continue with symptomatic and supportive care. Start her on a clear liquid diet and watch her labs closely and further recommendations will follow. Thank you for this consultation. ALEXA / MARIE: [id number] /
[2021-02-21] MEDS ORDERED: KETOROLAC 15 MG/ML 1 ML VIAL IVP STA (14:12)
[2021-02-21] MEDS: MELATONIN 5 MG TABLET PO SCH (19:59)
[2021-02-21] MEDS: KETOROLAC 15 MG/ML 1 ML VIAL IVP PRN (21:07)
[2021-02-22] MEDS: HYDROmorphone 0.5 MG/0.5 ML SYRINGE IVP PRN ×3 (01:31→08:16)
[2021-02-22] MEDS: SODIUM CHLORIDE 0.9% 1,000 ML IV SCH (04:36)
[2021-02-22] MEDS: ONDANSETRON 4 MG/2 ML VIAL IVP PRN (04:38)
[2021-02-22 07:15] VITALS: BP 144/77; PULSE 44; RESP 18; TEMP 97.7
[2021-02-22 07:45] LABS: Basophils % (A) 0 %; Eosinophils # (A) 0.1 k/uL (0-0.7); Eosinophils % (A) 0 %; HCT 35.5 % (34.0-46.0); HGB 11.8 gm/dL (11.4-16.0); Lymphocytes # (A) 2.9 k/uL (1.0-4.8); Lymphocytes % (A) 24 %; MCH 29.2 pg (25.0-35.0); MCHC 33.3 g/dL (31.0-37.0); MCV 87.7 fL (80.0-100.0); Mean Platelet Volume 7.9; Monocytes # (A) 0.7 k/uL (0-1.0); Monocytes % (A) 6 %; Neutrophils % (A) 68 %; Platelet Count 280 k/uL (150-450); RBC 4.05 m/uL (3.80-5.40); RDW 13.2 % (11.5-15.5); WBC 11.9 k/uL (3.8-10.6)
[2021-02-22 08:03] LABS: ALT 113 U/L (4-34); AST 47 U/L (14-36); African American GFR (CKD) >90 (>60 ml/min/1.73 sqM); Albumin/Globulin Ratio 1.6; Alkaline Phosphatase 118 U/L (38-126); Anion Gap 8 mmol/L; Blood Urea Nitrogen 12 mg/dL (7-17); Calcium 9.6 mg/dL (8.4-10.2); Carbon Dioxide 25 mmol/L (22-30); Chloride 103 mmol/L (98-107); Globulin 2.5 g/dL; Glucose 77 mg/dL (74-99); Non-African American GFR(CKD) >90 (>60 ml/min/1.73 sqM); Sodium 136 mmol/L (137-145); Total Protein 6.5 g/dL (6.3-8.2)
[2021-02-22] MEDS: NICOTINE 14MG/24HR PATCH TRANSDERM SCH (08:15)
[2021-02-22] MEDS: PANTOPRAZOLE 40 MG/10 ML VIAL IVP SCH (08:15)
[2021-02-22] MEDS ORDERED: ENOXAPARIN 40 MG/0.4 ML SYRINGE SQ SCH (09:00)
[2021-02-22] MEDS: KETOROLAC 15 MG/ML 1 ML VIAL IVP PRN (10:55)
--- NOTE | 2021-02-22 13:40 | P.DS ---
Providers Date of admission: 02/20/21 12:20 Expected date of discharge: 02/22/21 Attending physician: Jacquelin De Consults: 02/20/21 12:20 Consult Physician Urgent Consulting Provider: Ama Edward Consult Reason/Comments: Pancreatitis Do you want consulting provider notified?: Yes Primary care physician: Physician Nonstaff Hospital Course: This is a 30-year-old female with past medical history noted below who presented to the hospital with severe abdominal pain. Patient was evaluated in the ER and admitted to the hospital for further management of her medical problems noted below. 1. Acute pancreatitis, improved significantly with supportive care. Liver enzymes trended down. 2. Dilated extrahepatic common bile duct and main pancreatic duct: Noted on ultrasound of the abdomen. MRCP obtained confirming dilated biliary tree with enlargement of the intra-and extrahepatic bile duct. I reviewed MRCP report done in August and at that time there was no dilation of the common bile duct. 3. History of heavy alcohol abuse now in remission. Patient has been sober for 3 years 4. Chronic medical problems: Hypertension, hyperlipidemia, hypothyroidism Patient was seen and evaluated by me on the day of discharge. She was pain-free and was able to tolerate regular food with no difficulty. She was seen and evaluated by GI during this admission. Plan to refer her to [facility] outpatient for further evaluation and possible ERCP/EUS. Patient will be discharged home in a stable condition. She will resume her regular home medications. Follow up as directed. Patient Condition at Discharge: Fair Plan - Discharge Summary Discharge Rx Participant: Yes New Discharge Prescriptions: Continue Levothyroxine Sodium [Synthroid] 50 mcg PO DAILY Escitalopram [Lexapro] 10 mg PO DAILY Omeprazole [PriLOSEC] 40 mg PO BID Cholecalciferol [Vitamin D3 (25 Mcg = 1000 Iu)] 125 mcg PO DAILY Lisinopril [Prinivil] 10 mg PO DAILY Ferrous Sulfate [Iron (65 MG Elemental)] 325 mg PO BID Fenofibrate 160 mg PO DAILY amLODIPine [Norvasc] 10 mg PO DAILY Ibuprofen [Motrin] 600 mg PO TID PRN PRN Reason: Pain buPROPion HCL [Wellbutrin SR] 200 mg PO BID Baclofen [Lioresal] 10 mg PO DAILY PRN PRN Reason: Muscle Spasm busPIRone HCl [Buspar] 20 mg PO TID Ibuprofen [Motrin Ib] 400 mg PO HS PRN PRN Reason: Pain Discharge Medication List Escitalopram [Lexapro] 10 mg PO DAILY 07/05/17 [History] Levothyroxine Sodium [Synthroid] 50 mcg PO DAILY 07/05/17 [History] Baclofen [Lioresal] 10 mg PO DAILY PRN 02/20/21 [History] Cholecalciferol [Vitamin D3 (25 Mcg = 1000 Iu)] 125 mcg PO DAILY 02/20/21 [History] Fenofibrate 160 mg PO DAILY 02/20/21 [History] Ferrous Sulfate [Iron (65 MG Elemental)] 325 mg PO BID 02/20/21 [History] Ibuprofen [Motrin Ib] 400 mg PO HS PRN 02/20/21 [History] Ibuprofen [Motrin] 600 mg PO TID PRN 02/20/21 [History] Lisinopril [Prinivil] 10 mg PO DAILY 02/20/21 [History] Omeprazole [PriLOSEC] 40 mg PO BID 02/20/21 [History] amLODIPine [Norvasc] 10 mg PO DAILY 02/20/21 [History] buPROPion HCL [Wellbutrin SR] 200 mg PO BID 02/20/21 [History] busPIRone HCl [Buspar] 20 mg PO TID 02/20/21 [History] Follow up Appointment(s)/Referral(s): Sandra Cooley PAC [REFERRING] - 1 Week None,Stated [REFERRING] - 1-2 days Discharge Disposition: HOME SELF-CARE
--- NOTE | 2021-02-22 17:08 | P.PN ---
Subjective Progress Note Date: 02/22/21 Principal diagnosis: Elevated LFTs, history of pancreatitis Patient was seen and examined sitting up in bed. States her abdominal pain has improved. States she did still have abdominal pain yesterday evening. States Toradol is working well. Denies any nausea or vomiting. She is tolerating her diet. LFTs are stable. Patient had MRCP that revealed dilated biliary tree bot h in the intra-and extrahepatic biliary system with common bile duct measuring 1.6 cm. There is also enlargement of the gallbladder compared to the prior MRCP done in August 2020. There is enlargement of the pancreatic duct is well as small cyst in the head of the pancreas. No CBD stone identified. No solid pancreatic masses. Objective - Vital Signs Vital signs: Vital Signs Temp 97.7 F 02/22/21 07:14 Pulse 44 L 02/22/21 07:14 Resp 18 02/22/21 07:14 BP 144/77 02/22/21 07:14 Pulse Ox 100 02/22/21 07:14 Intake & Output 02/21/21 02/22/21 02/22/21 18:59 06:59 18:59 Intake Total 1500 200 Balance 1500 200 Intake: Intake, IV Titration 1500 Amount Sodium Chloride 0.9% 1, 200 000 ml @ 100 mls/hr IV . Q10H ROSI Rx#:[id number] Sodium Chloride 0.9% 1, 1300 000 ml @ 130 mls/hr IV . Q7H42M ROSI Rx#:[id number] Oral 200 Other: # Voids 3 - Exam General appearance: The patient is alert, oriented, appears in no acute distress. HET: Head is normocephalic and atraumatic. Conjunctiva pink. Sclera anicteric. Neck: Supple without lymphadenopathy. Abdomen: Soft, mild right upper quadrant tenderness, nondistended with bowel sounds. No guarding or rigidity. Extremities: Normal skin color and turgor. No pedal edema Skin: No rashes, no jaundice Neurological: No focal deficits. Alert and oriented 3. - Labs CBC & Chem 7: 02/22/21 07:11 02/22/21 07:11 Labs: Abnormal Lab Results - Last 24 Hours (Table) 02/22/21 02/22/21 Range/Units 07:11 07:11 WBC 11.9 H (3.8-10.6) k/uL Neutrophils # 8.0 H (1.3-7.7) k/uL Sodium 136 L (137-145) mmol/L Total Bilirubin 2.0 H (0.2-1.3) mg/dL AST 47 H (14-36) U/L ALT 113 H (4-34) U/L Assessment and Plan (1) Chronic pancreatitis Narrative/Plan: Chronic relapsing pancreatitis with multiple hospitalizations in the last 5 years. Last one about 6 months ago. Presents with severe epigastric pain, noted to have mild elevation of lipase consistent with a flare up of pancreatitis. Status: Acute Code(s): K86.1 - OTHER CHRONIC PANCREATITIS SNOMED Code(s): 450425074 (2) Elevated LFTs Narrative/Plan: Elevated LFTs and mild jaundice. T bilirubin was 2.5 on admission dropped to 1.6 with a repeat today of 2.0. AST and ALT continue to trend down. Ultrasound of the abdomen as well as MRCP did show evidence of intra-and extrahepatic biliary ductal dilation with CBD measuring 1.6 cm in diameter but no CBD stone identified. Also there was evidence of pancreatic ductal dilation with a small cyst in the head of the pancreas, also gallbladder slightly dilated. No gallstones identified. Clinical and biochemical picture more consistent with possible distal common bile duct stricture secondary to chronic pancreatitis cau sing intra-and extrahepatic biliary ductal dilation. CBD stone. We'll plan on outpatient EUS and ERCP at [facility]. Status: Acute Code(s): R79.89 - OTHER SPECIFIED ABNORMAL FINDINGS OF BLOOD CHEMISTRY SNOMED Code(s): 274549970 (3) History of alcohol abuse Status: Acute Code(s): F10.11 - ALCOHOL ABUSE, IN REMISSION SNOMED Code(s): 989428838 Plan: 1. Diet as tolerated 2. Continue symptomatic and supportive care 3. Pain medication as needed 3. Antiemetics as needed 4. No plans on ERCP, will refer patient to [facility] for outpatient EUS/ERCP 5. Patient to follow-up with Sandra Cooley as scheduled Thank you for this consultation, patient is cleared for discharge from gastroenterology Dr. Elva Edward I agree with the dictator's note, documented as a scribe by Tabitha Aguirre.
== END 2021-02-22 13:57 | disposition home or self-care (01) | DRG 439 ==
LOC: EC 09:37 → 4SSUR 12:20
PROVIDERS: ADMIT Internal Medicine; ATTEND Internal Medicine
PROC: BF141ZZ Fluoroscopy of Gallbladder, Bile Ducts and Pancreatic Ducts using Low Osmolar Contrast (ICD-10-PCS; principal; 2021-02-20)
DX: K85.90 Acute pancreatitis without necrosis or infection, unspecified (principal); K80.51 Calculus of bile duct without cholangitis or cholecystitis with obstruction; K86.2 Cyst of pancreas; K86.1 Other chronic pancreatitis; E03.9 Hypothyroidism, unspecified; E78.5 Hyperlipidemia, unspecified; F10.11 Alcohol abuse, in remission; F17.210 Nicotine dependence, cigarettes, uncomplicated; F32.9 Major depressive disorder, single episode, unspecified; F41.0 Panic disorder [episodic paroxysmal anxiety]; I10 Essential (primary) hypertension; Z79.890 Hormone replacement therapy; Z79.899 Other long term (current) drug therapy
CPT/HCPCS: 36415; 74181; 76705; 80053; 81025; 82150; 83605; 83690; 84478; 85025; 93005; 96361; 96365; 96375; 99285

== ENCOUNTER 2021-03-11 07:20 | Day surgery (SDC) | payer OTHER ==
[2021-03-10 11:47] VITALS: BMI 27.8
[~2021-03-11 07:20] MED LIST: LACTATED RINGERS 1,000 ML IV SCH
[2021-03-11 07:53] VITALS: TEMP 96.3
[2021-03-11 07:58] LABS: Glucose,Whole Blood 96 mg/dL (75-99)
[2021-03-11] MEDS ORDERED: PROPOFOL 10 MG/ML 20 ML VIAL IV ONE (08:09)
[2021-03-11] MEDS ORDERED: LIDOCAINE 1% INJ 10MG/ML (20 ML MDV) ONE (08:09)
--- NOTE | 2021-03-11 08:25 | P.PCN ---
Date of Procedure: 03/11/21 Description of Procedure: BRIEF HISTORY: Patient is a 30-year-old female presented for outpatient esophagogastroduodenoscopy for evaluation of epigastric pain, nausea and vomiting. Patient is prior episode of pancreatitis. Previous heavy alcohol use however she reports abstinence since 2018. PROCEDURE PERFORMED: Esophagogastroduodenoscopy with biopsy. PREOPERATIVE DIAGNOSIS: Epigastric abdominal pain, nausea and vomiting. ESTIMATED BLOOD LOSS: Minimal. IV sedation per anesthesia. PROCEDURE: After informed consent was obtained, the patient was brought into the endoscopy unit. IV sedation was administered by Anesthesia under continuous monitoring. Initially the Olympus GIF-190 video endoscope was inserted into the mouth. Esophagus intubated without any difficulty. It was gradually advanced into the stomach and duodenum and carefully examined. The bulb and the second part of the duodenum appeared normal, with biopsies taken. The scope at this time was withdrawn to the stomach, adequately insufflated with air, and upon careful examination, mucosa of the antrum, body, cardia and the fundus appeared normal, with some mild punctate erythema in the antrum and body suggestive of mild gastritis biopsies taken. The scope was then withdrawn into the esophagus. The GE junction was located at 34 cm from the incisors, with a 4 cm hiatal hernia noted. The esophagus appeared normal, with lower esophageal biopsies taken. There were no erosions or ulcerations seen and the patient tolerated the procedure well. IMPRESSION: 1. Mild gastritis. 2. Moderate sized hiatal hernia. 3. Biopsies of the duodenum, antrum and body and lower esophagus. RECOMMENDATIONS: The findings of this examination were discussed with the patient and her family. Continue current medical regimen. Continue PPI therapy. Await pathology from biopsies. Follow up in the GI clinic as scheduled.
[2021-03-11 08:43] VITALS: BP 120/74; PULSE 71; RESP 16
== END 2021-03-11 09:01 | disposition home or self-care (01) ==
LOC: ORWHC2ENDO 07:20
PROVIDERS: ATTEND Internal Medicine
DX: K29.50 Unspecified chronic gastritis without bleeding (principal); K21.00 Gastro-esophageal reflux disease with esophagitis, without bleeding; Z87.19 Personal history of other diseases of the digestive system; I10 Essential (primary) hypertension; F17.200 Nicotine dependence, unspecified, uncomplicated; Z79.890 Hormone replacement therapy; Z79.899 Other long term (current) drug therapy
CPT/HCPCS: 81025; 88305; 43239; J2001; J2704

== ENCOUNTER → 2022-05-06 | Outpatient (CLI) | payer OTHER ==
--- NOTE | 2022-05-06 11:57 | NM ---
EXAMINATION TYPE: NM gastric emptying static DATE OF EXAM: 05/06/2022 COMPARISON: No direct comparisons. HISTORY: R10.13 Epigastric Pain Following administration of 1.9 mCi Tc 99m Sulfur Colloid with 4 OUNCES OF EGG WHITES, 2 PIECES OF TO AST W/ BUTTER AND JELLY, 6 OUNCES WATER, projection images of the abdomen were obtained [address] ingestion. Patient Emptying Values 1 Hour 12 % 2 Hours 32 % 3 Hours 54 % 4 Hours 65 % Gastroesophageal reflux: None IMPRESSION: Gastric emptying: Mild delayed gastric emptying Gastroesophageal reflux: None Gastric emptying normal percentage values: 30 minutes: <70% of retention (> 30% emptying) suggests abnormally fast emptying. 60 minutes: <90% retention (>10% emptying) is normal; less than 30% retention (>70% emptying) suggest s abnormally rapid emptying. 90 minutes: <65% retention (> 35% emptying) is normal. 120 minutes: <60% retention (> 40% emptying) is normal. 180 minutes: <30% retention (> 70% emptying) is normal. Gastric emptying T-1/2: Solid: The normal range is 60-105 minutes Liquid only: Normal range is 10-45 minutes. Liquid only-children: At 60 minutes, normal range is 44-58 % . Liquid only-infants: At 60 minutes, normal range is 32-64 %. Additional references: Gastric Emptying Scintigraphy [email or web address]://[email or web address]
== END | disposition home or self-care (01) ==
LOC: RADNMMAIN 07:04
PROVIDERS: ATTEND Internal Medicine Gastroenterology
DX: K31.89 Other diseases of stomach and duodenum (principal)
CPT/HCPCS: 78264; A9541

== ENCOUNTER 2022-05-15 18:09 | Emergency (ER) | payer OTHER ==
[2022-05-15 18:56] VITALS: TEMP 99.1
[2022-05-15 19:33] LABS: Amorphous Sediment,Urine Rare /hpf; Appearance,Urine Cloudy (Clear); Bacteria,Urine Rare /hpf; Bilirubin,Urine Negative (Negative); Blood,Urine Small (Negative); Calcium Oxalate Crystals,Urine Moderate /hpf; Color,Urine Yellow; Glucose,Urine (UA) Negative (Negative); Ketones,Urine Negative (Negative); Leukocyte Esterase,Urine Small (Negative); Mucus,Urine Rare /hpf; Nitrite,Urine Negative (Negative); PH, Urine 6.5 (5.0-8.0); Protein,Urine Trace (Negative); RBC,Urine 45 /hpf (0-5); Specific Gravity,Urine 1.017 (1.001-1.035); Squamous Epithelial Cell,Urine 1 /hpf (0-4); WBC,Urine 3 /hpf (0-5)
[2022-05-15 20:30] LABS: Basophils # (A) 0.1 k/uL (0-0.2); Basophils % (A) 1 %; Eosinophils # (A) 0.1 k/uL (0-0.7); Eosinophils % (A) 1 %; HCT 42.4 % (34.0-46.0); HGB 14.1 gm/dL (11.4-16.0); Lymphocytes # (A) 4.2 k/uL (1.0-4.8); Lymphocytes % (A) 39 %; MCH 29.2 pg (25.0-35.0); MCHC 33.2 g/dL (31.0-37.0); MCV 88.2 fL (80.0-100.0); Mean Platelet Volume 8.5; Monocytes # (A) 0.5 k/uL (0-1.0); Monocytes % (A) 5 %; Neutrophils # (A) 5.8 k/uL (1.3-7.7); Neutrophils % (A) 53 %; Platelet Count 293 k/uL (150-450); RBC 4.81 m/uL (3.80-5.40); RDW 12.8 % (11.5-15.5); WBC 10.9 k/uL (3.8-10.6)
[2022-05-15 20:40] LABS: ALT 20 U/L (4-34); AST 26 U/L (14-36); African American GFR (CKD) >90 (>60 ml/min/1.73 sqM); Albumin 4.9 g/dL (3.5-5.0); Alkaline Phosphatase 61 U/L (38-126); Anion Gap 14 mmol/L; Blood Urea Nitrogen 11 mg/dL (7-17); Calcium 10.1 mg/dL (8.4-10.2); Carbon Dioxide 22 mmol/L (22-30); Chloride 102 mmol/L (98-107); Glucose 94 mg/dL (74-99); Non-African American GFR(CKD) >90 (>60 ml/min/1.73 sqM); Potassium 3.9 mmol/L (3.5-5.1); Sodium 138 mmol/L (137-145); Total Bilirubin 0.3 mg/dL (0.2-1.3); Total Protein 7.4 g/dL (6.3-8.2)
[2022-05-15] MEDS ORDERED: SODIUM CHLORIDE 0.9% 1,000 ML IV STA (22:32)
[2022-05-15] MEDS ORDERED: ALPRAZolam 0.5 MG TAB PO STA (22:32)
[2022-05-15] MEDS ORDERED: ACETAMINOPHEN TAB 325 MG TAB PO STA (22:32)
[2022-05-16 00:50] VITALS: PULSE 89
[2022-05-16 00:52] VITALS: BP 120/83; RESP 16
--- NOTE | 2022-05-16 01:41 | ED ---
General Adult HPI - General Chief complaint: Abdominal Pain Stated complaint: Kidney Infection Time Seen by Provider: 05/15/22 22:11 Source: patient, RN notes reviewed Mode of arrival: ambulatory Limitations: no limitations - History of Present Illness Initial comments: 31-year-old female presents to the emergency department for evaluation of bilateral flank pain and urinary frequency. Reports symptoms have been ongoing for the past 3 days. Does have some burning with urination. Reports normal regular menstrual cycle; denies chance of . Patient states she is feeling anxious and restless. Reports recent experience serotonin syndrome a fter having taken tramadol concurrently with Wellbutrin and Lexapro. States her last dose of tramadol was more than a week ago and has discarded the prescription. Denies fever, headache, chest pain, shortness of breath, abdominal pain, vomiting, diarrhea,or constipation. - Related Data Home Medications Medication Instructions Recorded Confirmed Escitalopram [Lexapro] 10 mg PO DAILY 07/05/17 03/10/21 Levothyroxine Sodium [Synthroid] 50 mcg PO DAILY 07/05/17 03/10/21 Baclofen [Lioresal] 10 mg PO DAILY PRN 02/20/21 03/10/21 Cholecalciferol [Vitamin D3 (25 125 mcg PO DAILY 02/20/21 03/10/21 Mcg = 1000 Iu)] Fenofibrate 160 mg PO DAILY 02/20/21 03/10/21 Ferrous Sulfate [Iron (65 MG 325 mg PO BID 02/20/21 03/10/21 Elemental)] Ibuprofen [Motrin Ib] 400 mg PO HS PRN 02/20/21 03/10/21 Ibuprofen [Motrin] 600 mg PO TID PRN 02/20/21 03/10/21 Omeprazole [PriLOSEC] 40 mg PO BID 02/20/21 03/10/21 amLODIPine [Norvasc] 10 mg PO DAILY 02/20/21 03/11/21 buPROPion HCL [Wellbutrin SR] 200 mg PO BID 02/20/21 03/10/21 busPIRone HCl [Buspar] 20 mg PO TID 02/20/21 03/10/21 lisinopriL [Prinivil] 10 mg PO DAILY 02/20/21 03/11/21 Previous Rx's Medication Instructions Recorded ALPRAZolam [Xanax] 0.25 mg PO BID PRN 3 Days #6 tab 05/16/22 Allergies Allergy/AdvReac Type Severity Reaction Status Date / Time No Known Allergies Allergy Verified 05/15/22 18:56 Review of Systems ROS Statement: Those systems with pertinent positive or pertinent negative responses have been documented in the HPI. ROS Other: All systems not noted in ROS Statement are negative. Past Medical History Past Medical History: GERD/Reflux Additional Past Medical History / Comment(s): depression, pancreatitis History of Any Multi-Drug Resistant Organisms: None Reported Past Surgical History: No Surgical Hx Reported Additional Past Surgical History / Comment(s): oral surgery Past Psychological History: Anxiety, Depression, Panic Disorder Smoking Status: Current every day smoker Past Alcohol Use History: Abuse Past Drug Use History: None Reported General Exam Limitations: no limitations General appearance: alert, in no apparent distress, anxious, other (Well- developed, well-nourished female in no acute distress, though is anxious. Initial temperature 99.1, pulse 124, respirations 18, blood pressure 153/84, pul se ox 96% on room air.) Eye exam: Present: normal appearance, PERRL, EOMI. Absent: scleral icterus, conjunctival injection ENT exam: Present: normal exam, normal oropharynx, mucous membranes moist Neck exam: Present: normal inspection, full ROM. Absent: tenderness, meningismus, lymphadenopathy Respiratory exam: Present: normal lung sounds bilaterally. Absent: respiratory distress, wheezes, rales, rhonchi, stridor Cardiovascular Exam: Present: regular rate, normal rhythm, normal heart sounds. Absent: systolic murmur, diastolic murmur, rubs, gallop, clicks GI/Abdominal exam: Present: soft, normal bowel sounds. Absent: distended, tenderness, guarding, rebound, rigid Back exam: Present: CVA tenderness (R), CVA tenderness (L) Neurological exam: Present: alert, oriented X3, normal gait Psychiatric exam: Present: anxious Skin exam: Present: warm, dry, intact, normal color. Absent: rash Course Vital Signs 05/15/22 05/16/22 05/16/22 18:54 00:35 00:49 Temperature 99.1 F Pulse Rate 124 H 83 89 Respiratory 18 16 Rate Blood Pressure 153/84 120/83 O2 Sat by Pulse 96 98 100 Oximetry - Reevaluation(s) Reevaluation #1: 05/16/22 01:00 Upon reassessment, patient is resting comfortably and in no acute distress. States her anxiety level is significantly improved. CT results are pending. Will reassess. Vital Signs: T=98.9, HR=78, RR=16, YH=627/83, SpO2=98% 05/16/22 02:30 Upon reassessment, patient is resting comfortably and states she is feeling much better. Findings were discussed with patient. She is encouraged to follow up with her PCP as scheduled this week. Medical Decision Making - Medical Decision Making This is a pleasant 31-year-old female with a past medical history of chronic pancreatitis and depression who presents to the emergency department for evaluation of abdominal pain and increased anxiety. Patient states she had recently taken tramadol and experienced serotonin syndrome, though had discontinued this medicine more than a week ago. Upon exam, patient is well- appearing, though quite anxious. Physical exam findings are unremarkable. Vital signs are stable. Laboratory studies were reviewed. Urinalysis showed trace protein, small blood, small leukocyte esterase, and 45 urine RBCs per high-power field; moderate calcium oxalate crystals. CT of the abdomen and pelvis shows multiple bilateral nonobstructing renal calculi along with chronic pancreatitis. Patient was given IV fluids and Xanax with improvement. She is scheduled to follow-up for further pain management this week. She will be prescribed a limited number of Xanax. Strict return parameters were discussed in detail. Patient verbalizes understanding and agrees with this plan. Attending: Carey. - Lab Data Result diagrams: 05/15/22 20:07 05/15/22 20:07 Lab Results 05/15/22 05/15/22 05/15/22 Range/Units 19:14 19:14 20:07 WBC 10.9 H (3.8-10.6) k/uL RBC 4.81 (3.80-5.40) m/uL Hgb 14.1 (11.4-16.0) gm/dL Hct 42.4 (34.0-46.0) % MCV 88.2 (80.0-100.0) fL MCH 29.2 (25.0-35.0) pg MCHC 33.2 (31.0-37.0) g/dL RDW 12.8 (11.5-15.5) % Plt Count 293 (150-450) k/uL MPV 8.5 Neutrophils % 53 % Lymphocytes % 39 % Monocytes % 5 % Eosinophils % 1 % Basophils % 1 % Neutrophils # 5.8 (1.3-7.7) k/uL Lymphocytes # 4.2 (1.0-4.8) k/uL Monocytes # 0.5 (0-1.0) k/uL Eosinophils # 0.1 (0-0.7) k/uL Basophils # 0.1 (0-0.2) k/uL Sodium (137-145) mmol/L Potassium (3.5-5.1) mmol/L Chloride (98-107) mmol/L Carbon Dioxide (22-30) mmol/L Anion Gap mmol/L BUN (7-17) mg/dL Creatinine (0.52-1.04) mg/dL Est GFR (CKD-EPI)AfAm (>60 ml/min/1.73 sqM) Est GFR (CKD-EPI)NonAf (>60 ml/min/1.73 sqM) Glucose (74-99) mg/dL Calcium (8.4-10.2) mg/dL Total Bilirubin (0.2-1.3) mg/dL AST (14-36) U/L ALT (4-34) U/L Alkaline Phosphatase (38-126) U/L Total Protein (6.3-8.2) g/dL Albumin (3.5-5.0) g/dL Urine Color Yellow Urine Appearance Cloudy H (Clear) Urine pH 6.5 (5.0-8.0) Ur Specific [place] 1.017 (1.001-1.035) Urine Protein Trace H (Negative) Urine Glucose (UA) Negative (Negative) Urine Ketones Negative (Negative) Urine Blood Small H (Negative) Urine Nitrite Negative (Negative) Urine Bilirubin Negative (Negative) Urine Urobilinogen 2.0 (<2.0) mg/dL Ur Leukocyte Esterase Small H (Negative) Urine RBC 45 H (0-5) /hpf Urine WBC 3 (0-5) /hpf Ur Squamous Epith Cells 1 (0-4) /hpf Calcium Oxalate Crystal Moderate H (None) /hpf Amorphous Sediment Rare H (None) /hpf Urine Bacteria Rare H (None) /hpf Urine Mucus Rare H (None) /hpf Urine HCG, Qual Not Detected (Not Detectd) 05/15/22 Range/Units 20:07 WBC (3.8-10.6) k/uL RBC (3.80-5.40) m/uL Hgb (11.4-16.0) gm/dL Hct (34.0-46.0) % MCV (80.0-100.0) fL MCH (25.0-35.0) pg MCHC (31.0-37.0) g/dL RDW (11.5-15.5) % Plt Count (150-450) k/uL MPV Neutrophils % % Lymphocytes % % Monocytes % % Eosinophils % % Basophils % % Neutrophils # (1.3-7.7) k/uL Lymphocytes # (1.0-4.8) k/uL Monocytes # (0-1.0) k/uL Eosinophils # (0-0.7) k/uL Basophils # (0-0.2) k/uL Sodium 138 (137-145) mmol/L Potassium 3.9 (3.5-5.1) mmol/L Chloride 102 (98-107) mmol/L Carbon Dioxide 22 (22-30) mmol/L Anion Gap 14 mmol/L BUN 11 (7-17) mg/dL Creatinine 0.77 (0.52-1.04) mg/dL Est GFR (CKD-EPI)AfAm >90 (>60 ml/min/1.73 sqM) Est GFR (CKD-EPI)NonAf >90 (>60 ml/min/1.73 sqM) Glucose 94 (74-99) mg/dL Calcium 10.1 (8.4-10.2) mg/dL Total Bilirubin 0.3 (0.2-1.3) mg/dL AST 26 (14-36) U/L ALT 20 (4-34) U/L Alkaline Phosphatase 61 (38-126) U/L Total Protein 7.4 (6.3-8.2) g/dL Albumin 4.9 (3.5-5.0) g/dL Urine Color Urine Appearance (Clear) Urine pH (5.0-8.0) Ur Specific [place] (1.001-1.035) Urine Protein (Negative) Urine Glucose (UA) (Negative) Urine Ketones (Negative) Urine Blood (Negative) Urine Nitrite (Negative) Urine Bilirubin (Negative) Urine Urobilinogen (<2.0) mg/dL Ur Leukocyte Esterase (Negative) Urine RBC (0-5) /hpf Urine WBC (0-5) /hpf Ur Squamous Epith Cells (0-4) /hpf Calcium Oxalate Crystal (None) /hpf Amorphous Sediment (None) /hpf Urine Bacteria (None) /hpf Urine Mucus (None) /hpf Urine HCG, Qual (Not Detectd) - EKG Data EKG shows normal: sinus rhythm Rate: normal EKG Comments: EKG obtained at 2006 shows sinus rhythm. Ventricular rate 91, SC interval 153, QRS duration 78, QT/QTC 314/363. Interpretation normal ECG. - Radiology Data Radiology results: report reviewed, image reviewed CT the abdomen and pelvis without contrast was obtained. Report was reviewed in its entirety. Impression per Dr. Calderon his hiatal hernia. Numerous pancreatic calcifications with chronic pancreatitis. Multiple bilateral nonobstructing renal calculi. Mild gastric wall thickening that could be hypertrophic gastritis. Disposition Clinical Impression: Flank pain, Renal calculi, Anxiety Disposition: HOME SELF-CARE Condition: Stable Instructions (If sedation given, give patient instructions): Kidney Stones (ED), Anxiety (ED) Additional Instructions: Increase your intake of fluid. Empty your bladder frequently. Continue taking your home medications as prescribed. Your initial blood pressure 153/84, heart rate 124. Upon discharge blood pressure 120/83, heart rate 83. You are being prescribed a limited number of Xanax for acute anxiety. Follow up with Rosalind Bullard for further evaluation and treatment. Return to the emergency department with any new, worsening, or concerning symptoms. Prescriptions: ALPRAZolam [Xanax] 0.25 mg PO BID PRN 3 Days #6 tab PRN Reason: Anxiety Is patient prescribed a controlled substance at d/c from ED?: Yes When asked, does pt state using other controlled substances?: No If prescribed controlled substance>3 days was MAPS reviewed?: Prescribed <3 Days If opioid is for acute pain is fill amount 7 days or less?: No If Rx opioid, was Start Talking consent form obtained?: No Referrals: [facility] [Primary Care Provider] - 1-2 days Time of Disposition: 02:40
--- NOTE | 2022-05-16 02:08 | CT ---
EXAMINATION TYPE: CT abdomen pelvis wo con DATE OF EXAM: 05/15/2022 COMPARISON: None HISTORY: bilateral flank pain CT DLP: 438.2 mGycm Automated exposure control for dose reduction was used. Images obtained from the diaphragm to the floor the pelvis with no contrast. The lung bases are clear of infiltrate. No pleural effusion. There is hiatal hernia. Heart size is no rmal. No pericardial effusion. Liver spleen and stomach appear intact. There are numerous pancreatic calcifications. There is some m ild wall thickening of the posterior stomach. The bile ducts are not dilated. Gallbladder appears int act. There is no adrenal mass. Kidneys have normal size. There are multiple bilateral renal calculi up to 1 cm. No hydronephrosis. Ureters are not dilated. No retroperitoneal adenopathy. Bladder distends smo othly. Uterus is anteverted. No pelvic mass. No free fluid in the pelvis. No inguinal hernia. Appendix is posterior and lateral and appears normal. The lumbar vertebrae have normal alignment. The re is mild narrowing at L5-S1 disc space. No compression fracture. The bony pelvis is intact. The hip joints are intact. There is no mesenteric edema. No ascites or free air. No sign of a bowel obstruct ion. IMPRESSION: Hiatal hernia. Numerous pancreatic calcifications consistent with chronic pancreatitis. Multiple bilateral nonobstructing renal calculi. Mild gastric wall thickening that could be hypertrophic gastritis.
== END 2022-05-16 02:45 | disposition home or self-care (01) ==
LOC: EC 18:09
DX: N20.0 Calculus of kidney (principal); F41.9 Anxiety disorder, unspecified; K44.9 Diaphragmatic hernia without obstruction or gangrene; K86.1 Other chronic pancreatitis; F17.200 Nicotine dependence, unspecified, uncomplicated; K21.9 Gastro-esophageal reflux disease without esophagitis; Z79.899 Other long term (current) drug therapy
CPT/HCPCS: 36415; 74176; 80053; 81001; 81025; 85025; 93005; 96360; 99284

== ENCOUNTER 2022-06-12 14:26 | Emergency (ER) | payer OTHER ==
[2022-06-12 14:37] VITALS: TEMP 98.5
--- NOTE | 2022-06-12 15:05 | ED ---
General Adult HPI - General Source: patient Mode of arrival: ambulatory Limitations: no limitations <Fab Maradiaga Victor Manuel - Last Filed: 06/12/22 15:46> <FarheenRonny michael Kashmir - Last Filed: 06/12/22 17:36> - General Chief complaint: Chest Pain Stated complaint: heart palp/chest pain Time Seen by Provider: 06/12/22 14:46 - History of Present Illness Initial comments: Dictation was produced using [employer] dictation software. please excuse any grammatical, word or spelling errors. Chief Complaint: Patient is a 31-year-old female presents to the emergency department for chest pain History of Present Illness: 31-year-old female she presents to the emergency department for chest pain. Patient states that it's in between sharp and dull. Dislocated to the substernal area. It comes in waves. Patient has a history of pancreatitis. Denies any nausea. She is worried about her heart because she has extensive cardiac history in her family. Patient states the pain radiates on her left upper extremity. No associated diaphoresis. Symptoms have been ongoing for the last couple weeks. No fevers. No cough. No shortness of breath. The ROS documented in this emergency department record has been reviewed and confirmed by me. Those systems with pertinent positive or negative responses have been documented in the HPI. All other systems are other negative and/or noncontributory. PHYSICAL EXAM: General Impression: Alert and oriented x3, not in acute distress HEENT: Normocephalic atraumatic, extra-ocular movements intact, pupils equal and reactive to light bilaterally, mucous membranes moist. Cardiovascular: Heart regular rate and rhythm Chest: Able to complete full sentences, no retractions, no tachypnea Abdomen: abdomen soft, non-tender, non-distended, no organomegaly Musculoskeletal: Pulses present and equal in all extremities, no peripheral edema Motor: no focal deficits noted Neurological: CN II-XII grossly intact, no focal motor or sensory deficits noted Skin: Intact with no visualized rashes Psych: Normal affect and mood ED course: 31-year-old well-appearing female presents to the emergency department for atypical chest pain typical features. Signs upon arrival shows heart rate of 116, worse vital signs within acceptable limits. EKG interpretation: Ventricular rate 100, sinus tachycardia,. 140, care is 91, QTC 390. No SD prolongation, no QTC prolongation, no ST or T-wave changes noted. Overall, this EKG is unremarkable Chest x-ray unremarkable. Patient is signed out to Dr. Nicholson at 4 PM (Fab Maradiaga) - Related Data Home Medications Medication Instructions Recorded Confirmed Levothyroxine Sodium [Synthroid] 50 mcg PO DAILY 07/05/17 06/12/22 Baclofen [Lioresal] 10 mg PO DAILY PRN 02/20/21 06/12/22 Fenofibrate 160 mg PO DAILY 02/20/21 06/12/22 Ferrous Sulfate [Iron (65 MG 325 mg PO BID 02/20/21 06/12/22 Elemental)] Ibuprofen [Motrin] 600 mg PO TID PRN 02/20/21 06/12/22 Omeprazole [PriLOSEC] 40 mg PO BID 02/20/21 06/12/22 amLODIPine [Norvasc] 10 mg PO DAILY 02/20/21 06/12/22 buPROPion HCL [Wellbutrin SR] 200 mg PO BID 02/20/21 06/12/22 busPIRone HCl [Buspar] 20 mg PO TID 02/20/21 06/12/22 lisinopriL [Prinivil] 10 mg PO DAILY 02/20/21 06/12/22 Cholecalciferol [Vitamin D3 (125 125 mcg PO DAILY 06/12/22 06/12/22 Mcg = 5000 Iu)] Escitalopram [Lexapro] 20 mg PO DAILY 06/12/22 06/12/22 HYDROcodone/APAP 5-325MG [[place] 1 tab PO TID PRN 06/12/22 06/12/22 5-325] Loratadine [Claritin] 10 mg PO DAILY 06/12/22 06/12/22 Metoclopramide HCl [Reglan] 5 mg PO BID 06/12/22 06/12/22 Previous Rx's Medication Instructions Recorded ALPRAZolam [Xanax] 0.25 mg PO BID PRN 3 Days #6 tab 05/16/22 Allergies Allergy/AdvReac Type Severity Reaction Status Date / Time No Known Allergies Allergy Verified 06/12/22 17:24 Review of Systems ROS Other: All systems not noted in ROS Statement are negative. <Fab Maradiaga - Last Filed: 06/12/22 15:46> ROS Other: All systems not noted in ROS Statement are negative. <Ronny Nicholson - Last Filed: 06/12/22 17:36> ROS Statement: Those systems with pertinent positive or pertinent negative responses have been documented in the HPI. Past Medical History Past Medical History: GERD/Reflux Additional Past Medical History / Comment(s): depression, pancreatitis History of Any Multi-Drug Resistant Organisms: None Reported Past Surgical History: No Surgical Hx Reported Additional Past Surgical History / Comment(s): oral surgery Past Psychological History: Anxiety, Depression, Panic Disorder Smoking Status: Current every day smoker Past Alcohol Use History: Abuse Past Drug Use History: None Reported <Fab Maradiaga - Last Filed: 06/12/22 15:46> General Exam Limitations: no limitations <Fab Maradiaga - Last Filed: 06/12/22 15:46> Course Vital Signs 06/12/22 06/12/22 14:34 17:11 Temperature 98.5 F 98.5 F Pulse Rate 116 H 90 Respiratory 20 18 Rate Blood Pressure 138/99 138/93 O2 Sat by Pulse 99 97 Oximetry Medical Decision Making - Lab Data Result diagrams: 06/12/22 15:05 <Fab Maradiaga - Last Filed: 06/12/22 15:46> - Lab Data Result diagrams: 06/12/22 15:05 06/12/22 15:05 <Ronny Nicholson - Last Filed: 06/12/22 17:36> - Medical Decision Making 31-year-old female with palpitations and chest discomfort. Patient well- appearing on reevaluation, resting comfortably symptoms are associated with a variety of other complaints. Laboratory testing had been ordered prior as well as EKG and chest x-ray. These results were reviewed. She has a mild elevation in serum lipase which she does report chronic pancreatitis. Her troponin level is negative. Her d-dimer level is negative. She did request thyroid testing in the emergency department as well as is also within normal limits. Chest x-ray is clear. The magnesium was 1.5 and was replaced. Ultimately after that the patient stable for discharge with close outpatient follow-up. She should return to the emergency department with worsening or changing symptoms. (Ronny Nicholson) - Lab Data Lab Results 06/12/22 06/12/22 06/12/22 Range/Units 15:05 15:05 15:05 WBC 6.7 (3.8-10.6) k/uL RBC 4.45 (3.80-5.40) m/uL Hgb 13.4 (11.4-16.0) gm/dL Hct 39.0 (34.0-46.0) % MCV 87.7 (80.0-100.0) fL MCH 30.2 (25.0-35.0) pg MCHC 34.4 (31.0-37.0) g/dL RDW 12.6 (11.5-15.5) % Plt Count 252 (150-450) k/uL MPV 8.5 Neutrophils % 56 % Lymphocytes % 35 % Monocytes % 5 % Eosinophils % 2 % Basophils % 1 % Neutrophils # 3.7 (1.3-7.7) k/uL Lymphocytes # 2.3 (1.0-4.8) k/uL Monocytes # 0.4 (0-1.0) k/uL Eosinophils # 0.1 (0-0.7) k/uL Basophils # 0.1 (0-0.2) k/uL PT 10.7 (9.0-12.0) sec INR 1.0 (<1.2) APTT 25.1 (22.0-30.0) sec D-Dimer (<0.60) mg/L FEU Sodium 141 (137-145) mmol/L Potassium 4.0 (3.5-5.1) mmol/L Chloride 107 (98-107) mmol/L Carbon Dioxide 21 L (22-30) mmol/L Anion Gap 13 mmol/L BUN 8 (7-17) mg/dL Creatinine 0.71 (0.52-1.04) mg/dL Est GFR (CKD-EPI)AfAm >90 (>60 ml/min/1.73 sqM) Est GFR (CKD-EPI)NonAf >90 (>60 ml/min/1.73 sqM) Glucose 78 (74-99) mg/dL Calcium 10.0 (8.4-10.2) mg/dL Magnesium 1.5 L (1.6-2.3) mg/dL AST (14-36) U/L ALT (4-34) U/L Troponin I (0.000-0.034) ng/mL Lipase 497 H (23-300) U/L TSH (0.465-4.680) mIU/L Urine Color Urine Appearance (Clear) Urine pH (5.0-8.0) Ur Specific [place] (1.001-1.035) Urine Protein (Negative) Urine Glucose (UA) (Negative) Urine Ketones (Negative) Urine Blood (Negative) Urine Nitrite (Negative) Urine Bilirubin (Negative) Urine Urobilinogen (<2.0) mg/dL Ur Leukocyte Esterase (Negative) Urine RBC (0-5) /hpf Ur Squamous Epith Cells (0-4) /hpf Calcium Oxalate Crystal (None) /hpf Urine Bacteria (None) /hpf Urine Mucus (None) /hpf Urine HCG, Qual (Not Detectd) 06/12/22 06/12/22 06/12/22 Range/Units 15:05 15:05 15:05 WBC (3.8-10.6) k/uL RBC (3.80-5.40) m/uL Hgb (11.4-16.0) gm/dL Hct (34.0-46.0) % MCV (80.0-100.0) fL MCH (25.0-35.0) pg MCHC (31.0-37.0) g/dL RDW (11.5-15.5) % Plt Count (150-450) k/uL MPV Neutrophils % % Lymphocytes % % Monocytes % % Eosinophils % % Basophils % % Neutrophils # (1.3-7.7) k/uL Lymphocytes # (1.0-4.8) k/uL Monocytes # (0-1.0) k/uL Eosinophils # (0-0.7) k/uL Basophils # (0-0.2) k/uL PT (9.0-12.0) sec INR (<1.2) APTT (22.0-30.0) sec D-Dimer (<0.60) mg/L FEU Sodium (137-145) mmol/L Potassium (3.5-5.1) mmol/L Chloride (98-107) mmol/L Carbon Dioxide (22-30) mmol/L Anion Gap mmol/L BUN (7-17) mg/dL Creatinine (0.52-1.04) mg/dL Est GFR (CKD-EPI)AfAm (>60 ml/min/1.73 sqM) Est GFR (CKD-EPI)NonAf (>60 ml/min/1.73 sqM) Glucose (74-99) mg/dL Calcium (8.4-10.2) mg/dL Magnesium (1.6-2.3) mg/dL AST (14-36) U/L ALT (4-34) U/L Troponin I <0.012 (0.000-0.034) ng/mL Lipase (23-300) U/L TSH (0.465-4.680) mIU/L Urine Color Yellow Urine Appearance Cloudy H (Clear) Urine pH 6.0 (5.0-8.0) Ur Specific [place] 1.023 (1.001-1.035) Urine Protein Trace H (Negative) Urine Glucose (UA) Negative (Negative) Urine Ketones Negative (Negative) Urine Blood Small H (Negative) Urine Nitrite Negative (Negative) Urine Bilirubin Negative (Negative) Urine Urobilinogen <2.0 (<2.0) mg/dL Ur Leukocyte Esterase Trace H (Negative) Urine RBC 21 H (0-5) /hpf Ur Squamous Epith Cells 4 (0-4) /hpf Calcium Oxalate Crystal Moderate H (None) /hpf Urine Bacteria Rare H (None) /hpf Urine Mucus Rare H (None) /hpf Urine HCG, Qual Not Detected (Not Detectd) 06/12/22 06/12/22 Range/Units 16:53 16:53 WBC (3.8-10.6) k/uL RBC (3.80-5.40) m/uL Hgb (11.4-16.0) gm/dL Hct (34.0-46.0) % MCV (80.0-100.0) fL MCH (25.0-35.0) pg MCHC (31.0-37.0) g/dL RDW (11.5-15.5) % Plt Count (150-450) k/uL MPV Neutrophils % % Lymphocytes % % Monocytes % % Eosinophils % % Basophils % % Neutrophils # (1.3-7.7) k/uL Lymphocytes # (1.0-4.8) k/uL Monocytes # (0-1.0) k/uL Eosinophils # (0-0.7) k/uL Basophils # (0-0.2) k/uL PT (9.0-12.0) sec INR (<1.2) APTT (22.0-30.0) sec D-Dimer 0.31 (<0.60) mg/L FEU Sodium (137-145) mmol/L Potassium (3.5-5.1) mmol/L Chloride (98-107) mmol/L Carbon Dioxide (22-30) mmol/L Anion Gap mmol/L BUN (7-17) mg/dL Creatinine (0.52-1.04) mg/dL Est GFR (CKD-EPI)AfAm (>60 ml/min/1.73 sqM) Est GFR (CKD-EPI)NonAf (>60 ml/min/1.73 sqM) Glucose (74-99) mg/dL Calcium (8.4-10.2) mg/dL Magnesium (1.6-2.3) mg/dL AST 23 (14-36) U/L ALT 18 (4-34) U/L Troponin I (0.000-0.034) ng/mL Lipase (23-300) U/L TSH 1.530 (0.465-4.680) mIU/L Urine Color Urine Appearance (Clear) Urine pH (5.0-8.0) Ur Specific [place] (1.001-1.035) Urine Protein (Negative) Urine Glucose (UA) (Negative) Urine Ketones (Negative) Urine Blood (Negative) Urine Nitrite (Negative) Urine Bilirubin (Negative) Urine Urobilinogen (<2.0) mg/dL Ur Leukocyte Esterase (Negative) Urine RBC (0-5) /hpf Ur Squamous Epith Cells (0-4) /hpf Calcium Oxalate Crystal (None) /hpf Urine Bacteria (None) /hpf Urine Mucus (None) /hpf Urine HCG, Qual (Not Detectd) Disposition <Fab Maradiaga - Last Filed: 06/12/22 15:46> Is patient prescribed a controlled substance at d/c from ED?: No Time of Disposition: 17:31 <Ronny Nicholson - Last Filed: 06/12/22 17:36> Clinical Impression: Anxiety, Palpitations Disposition: HOME SELF-CARE Condition: Fair Instructions (If sedation given, give patient instructions): Heart Palpitations (ED) Referrals: Rosalind [facility] [Nurse Practitioner] - 1-2 days
[2022-06-12 15:32] LABS: Basophils # (A) 0.1 k/uL (0-0.2); Basophils % (A) 1 %; Eosinophils # (A) 0.1 k/uL (0-0.7); Eosinophils % (A) 2 %; HGB 13.4 gm/dL (11.4-16.0); Lymphocytes # (A) 2.3 k/uL (1.0-4.8); Lymphocytes % (A) 35 %; MCH 30.2 pg (25.0-35.0); MCHC 34.4 g/dL (31.0-37.0); MCV 87.7 fL (80.0-100.0); Mean Platelet Volume 8.5; Monocytes # (A) 0.4 k/uL (0-1.0); Monocytes % (A) 5 %; Neutrophils # (A) 3.7 k/uL (1.3-7.7); Neutrophils % (A) 56 %; Platelet Count 252 k/uL (150-450); RBC 4.45 m/uL (3.80-5.40); RDW 12.6 % (11.5-15.5); WBC 6.7 k/uL (3.8-10.6)
[2022-06-12 15:36] LABS: Appearance,Urine Cloudy (Clear); Bacteria,Urine Rare /hpf; Bilirubin,Urine Negative (Negative); Blood,Urine Small (Negative); Calcium Oxalate Crystals,Urine Moderate /hpf; Color,Urine Yellow; Glucose,Urine (UA) Negative (Negative); Ketones,Urine Negative (Negative); Leukocyte Esterase,Urine Trace (Negative); Mucus,Urine Rare /hpf; Nitrite,Urine Negative (Negative); Protein,Urine Trace (Negative); RBC,Urine 21 /hpf (0-5); Specific Gravity,Urine 1.023 (1.001-1.035); Squamous Epithelial Cell,Urine 4 /hpf (0-4); Urobilinogen,Urine <2.0 mg/dL (<2.0)
[2022-06-12 15:42] LABS: Partial Thromboplastin Time 25.1 sec (22.0-30.0); Prothrombin Time 10.7 sec (9.0-12.0)
--- NOTE | 2022-06-12 15:46 | XR ---
EXAMINATION TYPE: XR chest 1V portable DATE OF EXAM: 06/12/2022 COMPARISON: NONE HISTORY: Palpitations TECHNIQUE: Single view FINDINGS: Heart and mediastinum are normal. Lungs are clear. Diaphragm is normal. Bony thorax appears normal. IMPRESSION: Normal chest.
[2022-06-12 16:03] LABS: African American GFR (CKD) >90 (>60 ml/min/1.73 sqM); Anion Gap 13 mmol/L; Blood Urea Nitrogen 8 mg/dL (7-17); Carbon Dioxide 21 mmol/L (22-30); Chloride 107 mmol/L (98-107); Glucose 78 mg/dL (74-99); Lipase 497 U/L (23-300); Magnesium 1.5 mg/dL (1.6-2.3); Non-African American GFR(CKD) >90 (>60 ml/min/1.73 sqM); Sodium 141 mmol/L (137-145)
[2022-06-12] MEDS ORDERED: MAGNESIUM SULFATE-D5W PMX 1 GM in DEXTROSE/WATER 1 100ML.BAG IVPB ONE (16:30)
[2022-06-12] MEDS ORDERED: SODIUM CHLORIDE 0.9% 500 ML 500 ML IV ONE (16:40)
[2022-06-12 19:40] VITALS: BP 133/85; PULSE 86; RESP 16
== END 2022-06-12 19:23 | disposition home or self-care (01) ==
LOC: EC 14:26
DX: K21.9 Gastro-esophageal reflux disease without esophagitis (principal); R00.2 Palpitations; F17.200 Nicotine dependence, unspecified, uncomplicated; F41.9 Anxiety disorder, unspecified; F32.A Depression, unspecified; F40.01 Agoraphobia with panic disorder; Z79.83 Long term (current) use of bisphosphonates; Z79.811 Long term (current) use of aromatase inhibitors; Z79.899 Other long term (current) drug therapy
CPT/HCPCS: 36415; 93005; 85379; 80048; 83690; 83735; 84443; 84450; 84460; 84484; 85025; 85610; 85730; 81001; 81025; 71045; 99285; J3475

== ENCOUNTER → 2023-06-29 | Outpatient (CLI) | payer OTHER ==
[2023-06-29 20:21] LABS: Basophils # (A) 0.05 X 10*3/uL (0.00-0.10); Basophils % (A) 0.8 %; Eosinophils % (A) 1.6 %; HCT 35.9 % (37.2-46.3); HGB 11.8 g/dL (12.0-15.0); Lymphocytes # (A) 2.96 X 10*3/uL (0.90-5.00); Lymphocytes % (A) 46.9 %; MCH 29.1 pg (27.0-32.0); MCHC 32.9 g/dL (32.0-37.0); MCV 88.4 FL (80.0-97.0); Mean Platelet Volume 12.6 FL (9.5-12.2); Monocytes # (A) 0.33 X 10*3/uL (0.20-1.00); Monocytes % (A) 5.2 %; NRBC Per 100 WBC 0 X 10*3/uL (0.00-0.01); Neutrophils # (A) 2.85 X 10*3/uL (1.80-7.70); Neutrophils % (A) 45.2 %; Platelet Count 171 X 10*3/uL (140-440); RBC 4.06 X 10*6/uL (4.10-5.20); WBC 6.31 X 10*3/uL (4.50-10.00)
[2023-06-30 02:28] LABS: BUN/Creat Ratio 10.56 Ratio (12.00-20.00); Blood Urea Nitrogen 9.5 mg/dL (9.0-27.0); Calcium 9.4 mg/dL (8.7-10.3); Chloride 102 mmol/L (96-109); Glucose 79 mg/dL (70-110); Potassium 3.9 mmol/L (3.5-5.5); Sodium 141 mmol/L (135-145)
== END | disposition home or self-care (01) ==
LOC: LABPAT 16:11
PROVIDERS: ATTEND Urology
DX: Z01.812 Encounter for preprocedural laboratory examination (principal); N20.0 Calculus of kidney; N20.1 Calculus of ureter
CPT/HCPCS: 80048; 85025

== ENCOUNTER → 2023-07-04 | Day surgery (SDC) | payer OTHER ==
[2023-07-03 12:35] VITALS: BMI 16.0
[~2023-07-04] MED LIST changes: +DEXAMETHASONE SOD PHOSPHATE 4 MG/ML 1 ML VIAL IV ONE; +HYDROmorphone 0.5 MG/0.5 ML SYRINGE IVP ONE; +HYDROmorphone 0.5 MG/0.5 ML SYRINGE IVP PRN; +LACTATED RINGERS 1,000 ML IV ONE; +LIDOCAINE 1% INJ 10MG/ML (20 ML MDV) ONE; +MIDAZOLAM 2 MG/2 ML VIAL IVP ONE; +MIDAZOLAM 2 MG/2 ML VIAL ONE; +ONDANSETRON 4 MG/2 ML VIAL IVP ONE; +PROPOFOL 10 MG/ML 20 ML VIAL IV ONE; +fentaNYL (PF) 50 MCG/ML 2 ML AMP ONE
--- NOTE | 2023-07-04 13:04 | XR ---
EXAMINATION TYPE: XR KUB DATE OF EXAM: 07/04/2023 12:13 PM CLINICAL INDICATION:Female, 32 years old with history of PRE SURG KUB; [facility] COMPARISON: None. TECHNIQUE: One radiographic view of the abdomen was obtained. FINDINGS: The bowel gas pattern is nonspecific without dilated loops of small or large bowel. There i s no evidence for organomegaly or pneumoperitoneum. The osseous structures are intact. Fecal mater ial and gas are demonstrated throughout the colon and rectum. Calcifications project over the kidney s bilaterally measuring up to 6 5 mm on the right and 7 mm on the left. IMPRESSION: 1. Bilateral calculi project over the kidneys. 2. Nonspecific bowel gas pattern without radiographic evidence for acute process.
--- NOTE | 2023-07-04 13:04 | P.HPIHPCON ---
History of Present Illness H&P Date: 07/04/23 Chief Complaint: Left ureteral stone, bilateral renal stones This is a 32-year-old female history of a 7 mm left-sided proximal stone, bilateral renal stones. She is having symptomatic bilateral flank pain. Option of bilateral ureteroscopy with holmium laser was discussed with her. Discussed risk which include but no limited to bleeding, infection, injury to the ureter. Risk of anesthesia was also discussed. She understood all the risk and agreed to proceed Consent for Procedure: I have explained the operation/procedure to the patient, including the risks, benefits, side effects, alternative therapies (including not receiving the proposed treatment or service), the likelihood of the patient achieving his/her goals, and potential recuperation problems for the procedure/sedation/analgesia, as well as any blood products, if indicated. I also explained to the patient the risks, benefits and side effects of the alternatives, as well as the risks related to not receiving the proposed procedure, care, treatment, or services. Past Medical History Past Medical History: GERD/Reflux Additional Past Medical History / Comment(s): kidney stones, chronic pancreat itis History of Any Multi-Drug Resistant Organisms: None Reported Past Surgical History: No Surgical Hx Reported Additional Past Surgical History / Comment(s): oral surgery, ERCP X4 AT [facility] Past Anesthesia/Blood Transfusion Reactions: No Reported Reaction Past Psychological History: Anxiety, Depression, Panic Disorder Smoking Status: Current every day smoker Additional Past Alcohol Use History / Comment(s): PAST HX OF ALCOHOL ABUSE, HAS NOT DRANK SINCE 2016 Past Drug Use History: None Reported - Past Family History Mother Family Medical History: No Reported History Medications and Allergies Home Medications Medication Instructions Recorded Confirmed Type Levothyroxine Sodium [Synthroid] 50 mcg PO DAILY 07/05/17 07/03/23 History Baclofen [Lioresal] 10 mg PO TID PRN 02/20/21 07/03/23 History Ferrous Sulfate [Iron (65 MG 325 mg PO BID 02/20/21 07/04/23 History Elemental)] Ibuprofen [Motrin] 600 mg PO TID PRN 02/20/21 07/04/23 History buPROPion HCL [Wellbutrin SR] 200 mg PO BID 02/20/21 07/03/23 History busPIRone HCl [Buspar] 20 mg PO TID 02/20/21 07/03/23 History lisinopriL [Prinivil] 10 mg PO DAILY 02/20/21 07/03/23 History Cholecalciferol [Vitamin D3 (125 125 mcg PO DAILY 06/12/22 07/03/23 History Mcg = 5000 Iu)] Escitalopram [Lexapro] 20 mg PO DAILY 06/12/22 07/03/23 History Loratadine [Claritin] 10 mg PO DAILY PRN 06/12/22 07/04/23 History Nf-[place] Poppy 1 tab PO DAILY 07/03/23 07/03/23 History Nf-Dandelion Root Tea 1 / PO DAILY 07/03/23 History clonazePAM [Klonopin] 0.5 mg PO DAILY PRN 07/03/23 07/04/23 History Allergies Allergy/AdvReac Type Severity Reaction Status Date / Time No Known Allergies Allergy Verified 07/04/23 12:44 Surgical - Exam Vital Signs Temp Pulse Resp BP Pulse Ox 98.1 F 73 16 166/70 100 07/04/23 12:47 07/04/23 12:47 07/04/23 12:47 07/04/23 12:47 07/04/23 12:47 - General no distress, moderate pain - Eyes normal ocular movement, no pale - ENT normal nares, normal mucosa - Respiratory normal expansion, normal respiratory effort - Abdomen Abdomen: soft, non tender - Psychiatric oriented to time, oriented to person, oriented to place Assessment and Plan Assessment: OR for bilateral ureteroscopy, holmium laser lithotripsy, stone basketing and stent insertion
--- NOTE | 2023-07-04 15:25 | P.OP ---
Date of Procedure: 07/04/23 Preoperative Diagnosis: Left ureteral stone, bilateral renal stones Postoperative Diagnosis: same Procedure(s) Performed: Cystoscopy, bilateral ureteroscopy, holmium laser lithotripsy, stone basketing and stent insertion Implants: 6-Kyr[place]z by 26 cm stent placed in the bilateral ureters Anesthesia: ERNESTO Surgeon: Rock Marte Estimated Blood Loss (ml): 5 Pathology: other (bilateral kidney stones) Condition: stable Disposition: PACU Indications for Procedure: This is a 32-year-old female history of a 7 mm left-sided proximal stone, bilateral renal stones. She is having symptomatic bilateral flank pain. Option of bilateral ureteroscopy with holmium laser was discussed with her. Discussed risk which include but no limited to bleeding, infection, injury to the ureter. Risk of anesthesia was also discussed. She understood all the risk and agreed to proceed Operative Findings: Large left-sided proximal stone, bilateral multiple renal stones Description of Procedure: Patient brought to the operating room, general anesthesia was induced. She was prepped and draped in sterile fashion and placed in dorsal primary position. Cystoscopy fitted with a 21-Kyrgyz sheath was inserted per urethra, cystoscopy was performed which showed no abnormality within the bladder. The left ureteral orifice was intubated with a sensor wire, the wire was advanced under fluoroscopy into the renal pelvis. Next a semirigid ureteroscope was inserted per urethra and advanced up the left ureteral orifice, this point a stone was encountered in the proximal ureter. Using the holmium laser the stone was fra gmented, stone fragments were removed using the stone basket. At this time the ureteroscope was advanced to the UPJ which showed no additional stones, pullback ureteroscopy was performed which showed no injury to the ureter or any sizable fragments, of note there was edema at the site of the stone. At this time an 1113 K[place] access sheath was passed over the wire into the proximal ureter. Next a flexible ureteroscope was inserted through the access sheath, renoscopy was performed which showed multiple stones within the kidney, using the holmium laser the stones were dusted. Sizable stone fragments were removed using the stone basket. Repeat renoscopy showed no sizable stones or injury to the kidney, pullback ureteroscopy was performed which showed no ureteral stones or injury to ureter, as ureteroscope was withdrawn and a sensor wire was advanced through. Next a ureteral stent was passed over the wire, the proximal curl was was on fluoroscopy and the distal curl was visualized cystoscope. At this time the attention was carried to the right ureteral orifice which was intubated with a sensor wire. Next under fluoroscopy 1113 [place] access sheath was passed over the wire into the proximal ureter. Next a flexible ureteroscope was inserted through the access sheath, renoscopy was performed which showed a stone in the upper pole that was dusted, and there were 2 additional stones within the lower port that were basketing and placed in the upper pole. These stones were also dusted, any sizable fragments were removed using the stone basket. Repeat renoscopy showed no sizable fragments or injury to the kidney, on fluoroscopy no radiopaque density could be seen. Pullback ureteroscopy was performed showed no injury to the ureter or any ureteral stones, as ureteroscope was withdrawn, a sensor wire was advanced through. Next a ureteral stent was passed over the wire, the proximal curl was visualized on fluoroscopy and the distal curl was visualized using cystoscope. The bladder was emptied at the end of the case. Patient tolerated procedure well taken to recovery in stable condition
[2023-07-04 15:42] VITALS: TEMP 98.2
[2023-07-04 16:08] VITALS: RESP 20
[2023-07-04 17:02] VITALS: BP 133/72; PULSE 66
--- NOTE | 2023-07-04 17:15 | FL ---
Intraoperative/procedural fluoroscopic services were provided. Total fluoroscopy time is 18 seconds w ith images submitted to PACS. Please see the operative/procedural note for further details. DAP: 162.72. Gycm2
== END ==
LOC: OR 11:53
PROVIDERS: ATTEND Urology
DX: N20.2 Calculus of kidney with calculus of ureter (principal); K21.9 Gastro-esophageal reflux disease without esophagitis; F41.9 Anxiety disorder, unspecified; F32.A Depression, unspecified; F17.200 Nicotine dependence, unspecified, uncomplicated; F10.90 Alcohol use, unspecified, uncomplicated; Z79.899 Other long term (current) drug therapy
CPT/HCPCS: 82365; 74018; 52356; J2250; J1100; J2405; J0690; J1170

== ENCOUNTER → 2023-09-22 | Outpatient (CLI) | payer OTHER ==
--- NOTE | 2023-09-24 09:03 | PE ---
EXAMINATION TYPE: PET CT fusion skull to thigh DATE OF EXAM: 09/22/2023 CLINICAL INDICATION:Female, 32 years old with history of R59.0Lymphadenopathy; TECHNIQUE: Following the intravenous administration of 10.18 mCi of F-18 FDG, whole body images are performed from the skull base to the midthigh. Images are reviewed on the computer in the coronal, axial, and sagittal planes. Reconstructed rotating images are created on independent workstation and reviewed on the computer. A non-contrast CT is performed in conjunction with the PET scan. Glucose level 84 mg/dL CT DLP: 163 mGycm, Automated exposure control for dose reduction was used. COMPARISON: CT 05/15/2022, PET/CT None, FINDINGS: Mediastinal SUV mean is 0.1. Hepatic parenchyma SUV mean is 1.33. SKULL BASE AND NECK: No suspicious radiotracer activity. CHEST, MEDIASTINUM, AND HILAR REGION: No suspicious radiotracer activity. ABDOMEN AND PELVIS: No suspicious radiotracer activity. Physiologic uptake within bowel. MUSCULOSKELETAL STRUCTURES: No suspicious radiotracer activity. OTHER CT: Trace pneumobilia present in the liver centrally. Scattered calcified lesions within the pancreatic parenchyma. Few suspected chronic pseudocysts. Eval uation of the anterior abdominal contents limited due to paucity of intra-L5 there is large amount st ool present. Nonobstructing renal calculi bilaterally. IMPRESSION: 1. No suspicious radiotracer activity. 2. Evidence of chronic pancreatitis with multiple suspected pancreatic cyst possibly relating to pse udocysts. 3. Trace pneumobilia of unknown significance possibly due to patulous biliary sphincter. 4. Gaseous dilation of colon with stool.
== END | disposition home or self-care (01) ==
LOC: RADPETMAIN 10:31
PROVIDERS: ATTEND Internal Medicine
DX: K83.8 Other specified diseases of biliary tract (principal); R59.0 Localized enlarged lymph nodes; K56.41 Fecal impaction; R14.0 Abdominal distension (gaseous)
CPT/HCPCS: 78815; A9552

== ENCOUNTER → 2024-04-09 | Outpatient (CLI) | payer OTHER ==
--- NOTE | 2024-04-09 21:46 | CT ---
EXAMINATION TYPE: CT abdomen pelvis w con DATE OF EXAM: 04/09/2024 COMPARISON: PET/CT 09/22/2023 INDICATION: abdominal pain, hx of pancreatitis. DLP: 512 mGycm, Automated exposure control for dose reduction was used. CONTRAST: 100 mL of Isovue 300. Study performed with Oral Contrast TECHNIQUE: Axial images were obtained from above the diaphragm to the pubic rami in the axial plane a t 5 mm thick sections. Reconstructed images are reviewed on the computer in the coronal plane. FINDINGS: Limited CT sections are obtained the lung bases. The lung bases are clear. Moderately large hiatal hernia is present contains oral contrast. CT ABDOMEN: Pancreas: There is a pseudocyst posterior to the pancreas at the splenic hilum measuring at least 6.2 x 4.1 cm in size. This is larger than the comparison. This has some extension inferior to the pancre as tail. Multiple calcifications are through the pancreas compatible with chronic pancreatitis. Withi n the mid body of the pancreas a small pseudocyst is present measuring approximately 0.7 cm. This is diminished in size from the comparison. Common bile duct at the head of the pancreas is prominent delia suring 1.0 cm. Liver: Normal Spleen: Normal Adrenal glands: The adrenal glands are normal. Gallbladder: Normal Kidneys: No masses are evident. No hydronephrosis is present. No cysts are present. Delayed images were obtained through the kidneys, which remain unremarkable. Aorta: Normal Inferior vena cava: Normal. CT PELVIS: Loops of bowel within the abdomen and pelvis are normal. There are some fluid-filled loops of bowel within the lower pelvis. There are loops of bowel which are incompletely distended or lack oral con trast limiting their evaluation. Appendix: Normal as limitedly visualized. Urinary bladder: Normal. Genitourinary structures: Uterus and left hemipelvis appears unremarkable. Adnexa are unremarkable. Osseous structures: No suspicious lytic or sclerotic lesions. IMPRESSION: 1. Findings compatible with chronic pancreatitis. Pseudocyst formation is present near the tail of t he pancreas which is slightly enlarged over the interval as well as within the mid posterior body of the pancreas which is slightly smaller than comparison.
== END | disposition home or self-care (01) ==
LOC: RADCTMAIN 16:10
PROVIDERS: ATTEND Internal Medicine
CPT/HCPCS: 74177